=== PATIENT | male | born 1955 | race Hispanic/Latino ===

== ENCOUNTER 2021-05-01 18:18 | Inpatient (IN) | payer OTHER ==
[2021-05-01] VITALS (8 sets, daily range): BP systolic 115–219; BP diastolic 66–123
[~2021-05-01] VITALS: Ht 165.1 cm; Wt 70.4 kg
--- NOTE | 2021-05-01 18:18 | NUR ---
LATE ENTRY - 175 ARRIVAL PRESENTED TO ED VIA EMS FOR "MENTAL ISSUES" PER [facility] STAFF. EN ROUTE TO [facility], PATIENT BECAME COMBATIVE AND ATTEMPTED TO JUMP FROM VEHICLE. [facility] INITIATED INTUBATION, 7.5 ET TUBE 20G HAND INFUSING NS AND VERSED DRIP, GIVEN VERSED 5MG/ATIVAN 1MG PER [facility] STAFF. INFORMED HOUSE SUP. WILL CALL [facility] TO GET MORE INFORMATION ON PATIENT. RT AT BEDSIDE. DR. GENAO NOTIFIED AND AT BEDSIDE.
[2021-05-01] MEDS ORDERED: CARDENE-NACL 20 MG/200 ML SOLN 200 ML IV STA (18:26)
--- NOTE | 2021-05-01 18:43 | ER.PDOC ---
General Chief Complaint: Medical Clearance Stated Complaint: INTUBATED TRAVEL OUT OF US: No Time seen by MD: 17:53 Source: EMS Exam Limitations: clinical condition History of Present Illness Initial Comments This 66-year-old black male arrived to us via the ambulance. Ambulance was called byA concerned citizen that saw this gentleman talking to himself and yelling at people and try to take his clothes off. This occurred in [place]. The patient was on the [place] in [place]. The centrifuge separator tender that responded to the scene picked him up and found out that both [place] and [facility] were on diversion and so he decided to bring him up here after talking with his transmission supervisor because he knew that we have a psych unit that can handle certain things. Apparently in route, patient was threatening to jump out of the back of the ambulance so the centrifuge separator tender gave him some of benzodiazepine which slowed him so much that he ended up having to intubate him. I am unable to get any history about this gentleman other than the bypasses report the paramedics that he was agitated and try to take his clothes off and then the paramedics stating that he was agitated and trying to jump out of the back of the truck.We have no idea what medications he might be on. He also was unable to give us any history of allergies or anything else. It comes and significantly hypertensive with systolic blood pressure in the 220 range. I have ordered a Cardene drip to be started on him and just a whole plethora of labs and a chest x-ray to see what we do find. Timing/Duration: unsure Modifying Factors: improves with other (Unknown) Associated Symptoms: other (Not obtainable) Past Medical History Medical History: other Surgical History: other (UnknownSocial history is also unobtainable) Social History Alcohol Use: other Review of Systems All Other Systems: Reviewed and Negative (Review of systems not obtainable due to patient being intubated) Physical Exam General Appearance: WD/WN Neck: Supple Respiratory: chest non-tender, retractions, other (Patient is intubated he does have some inspiratory rales that were knownPatient is intubated he does have some inspiratory rales that were Found on exam. ET tube suction and got some sl ightly bloody and clear fluid out.) CVS: reg rate & rhythm, no murmur Gastrointestinal: Absent bowel sounds Extremities: Normal Inspection Neurologic/Psychiatric: Other (Neuro is completely unobtainable due to patient being sedated on on a ventilator) Skin: Normal Color, Warm/Dry Lymphatic: No Adenopathy Results/Orders Results/Orders Orders - ELOISE ROYAL MD Haloperidol Lactate (Haldol) (05/01/21 22:38) Lorazepam (Ativan) (05/01/21 22:41) Vital Signs Date Time Temp Pulse Resp B/P (MAP) Pulse Ox O2 Delivery O2 Flow Rate FiO2 05/01/21 18:25 97.8 81 12 219/123 (155) 100 Vent Mechanical Ventilator 05/01/21 18:25 97.8 81 12 100 05/01/21 18:25 97.8 81 12 05/01/21 17:57 96 16 97 35 Laboratory Tests Test 05/01/21 18:26 05/01/21 18:31 05/01/21 18:55 05/01/21 19:40 Blood Gas Sample Site LEFT BRACHIAL ARTRY Blood pH 7.340 (7.350-7.450) Blood Gas PCO2 45.1 mmHg (35.0-45.0) H Blood Gas PO2 70.0 mmHg (80.0-100.0) L Blood Gas HCO3 23.8 mmol/L (22.0-26.0) Blood Gas Base Excess -2.1 mmol/L (-2.0-2.0) L Bossman Test N/A Arterial Blood Oxygen Saturation 90.8 % (94.0-97.00) L Deoxyhemoglobin 9.1 % (0.0-5.0) H Carboxyhemoglobin 0.3 % (0.0-3.9) Methemoglobin 0.4 % (0.00-5.0) Total Hemoglobin 11.4 % (12.0-17.8) L Total Oxygen Concentration 14.5 % (13.5-17.5) Blood Gas Temperature 37.0 Oxygen Delivery Method VENT Blood Gas Vent Mode AC Blood Gas Vent Rate 18 FiO2 35 % (20-101) Blood Gas Tidal Volume 380 ML Blood Gas PEEP 5 CMH2O Total Carbon Dioxide 25.2 mmol/L (23-27) Urine Collection Type CATH Urine Color YELLOW Urine Appearance CLOUDY Urine Bilirubin NEGATIVE (NEGATIVE) Urine Ketones NEGATIVE (NEGATIVE) Urine Specific [place] 1.025 (1.005-1.030) Urine pH 5.5 (4.5-8.0) Urine Protein 2+ (NEGATIVE) H Urine Urobilinogen 0.2 E.U./dL (0.2) Urine Nitrate NEGATIVE (NEGATIVE) Urine Leukocyte Esterase TRACE (NEGATIVE) H Urine Glucose (Auto)(UA) NEGATIVE (NEGATIVE) Urine Blood 3+ (NEGATIVE) H Urine RBC TooNumerousToCount RBC/HPF (NONE Urine WBC 2-5 WBC/HPF (0-2) Urine Squamous Epithelial Cells FEW (<=FEW) Urine Bacteria FEW (NONE SEEN) H Urine Opiates Screen NEGATIVE (c/o300ng/mL) Urine Methadone Screen NEGATIVE (c/o300ng/mL) Urine Barbiturates Screen NEGATIVE (c/o200ng/mL) Urine Phencyclidine Screen NEGATIVE (c/o 25ng/mL) Ur Amphetamine/Methamphetamine NEGATIVE (al6643hw/mL) Urine MDMA Screen (Ecstasy) NEGATIVE (c/o300ng/mL) Urine Benzodiazepines Screen PRESUMPTIVE POSITIVE Urine Cocaine Metabolite Screen NEGATIVE (c/o300ng/mL) Ur Tetrahydrocannabinol (THC) Scrn NEGATIVE (c/o 50ng/mL) SARS-CoV-2 Antigen (Rapid) NEGATIVE (NEGATIVE) White Blood Count 6.1 10^3/uL (4.5-11.0) Red Blood Count 4.04 10^6/uL (4.50-5.90) L Hemoglobin 12.4 g/dL (13.9-16.3) L Hematocrit 39.8 % (37.0-53.0) Mean Corpuscular Volume 98.5 fL (78-100) Mean Corpuscular Hemoglobin 30.7 pg (26-34) Mean Corpuscular Hemoglobin Concent 31.2 g/dL (33-36.5) L Red Cell Distribution Width 12.8 % (11.5-14.5) Platelet Count 189 10^3/uL (150-400) Mean Platelet Volume 9.7 fL (7.8-11.0) Neutrophils (%) (Auto) 68.6 % (41.0-85.0) Lymphocytes (%) (Auto) 19.4 % (24.0-44.0) L Monocytes (%) (Auto) 10.2 % (5.0-12.0) Neutrophils # (Auto) 4.2 10^3/uL (1.8-7.7) Lymphocytes # (Auto) 1.18 10^3/uL1 (1.0-4.8) Monocytes # (Auto) 0.6 10^3/uL (0.3-0.8) Absolute Immature Granulocyte (auto 0.03 10^3 u/L (0-2) Absolute Eosinophils (auto) 0.1 10^3/uL (0.0-0.2) Immature Granulocytes % 0.50 % (0.00-0.50) Eosinophils % 1.0 % (0.0-5.0) Basophils % 0.3 % (0.0-0.2) H Basophils # 0.0 10^3/uL (0.0-0.1) Prothrombin Time 11.4 SEC (9.6-12.0) Prothrombin Time INR (Non-Therap) 1.1 Activated Partial Thromboplast Time 20.7 SEC (24.67-30.72) Sodium Level 134 mmol/L (132-145) Potassium Level 4.2 mmol/L (3.6-5.2) Chloride Level 100.0 mmol/L (96-109) Carbon Dioxide Level 23.1 mmol/L (20.0-32) Anion Gap 15.1 Blood Urea Nitrogen 12 mg/dL (7-18) Creatinine 1.09 mg/dL (0.59-1.40) Estimated GFR () 81.9 (>/=60) Est GFR (CKD-EPI)(Non-Afr Micronesian) 67.7 (>/=60) BUN/Creatinine Ratio 11.0 Glucose Level 156 mg/dL (70-110) H Calcium Level 8.8 mg/dL (8.4-10.5) Total Bilirubin 0.7 mg/dL (0.2-1.0) Aspartate Amino Transferase (AST) 34 U/L (0-35) Alanine Aminotransferase (ALT) 29 U/L (12-78) Alkaline Phosphatase 75 U/L (50-136) Ammonia 40 umol/L (11-35) H Total Creatine Kinase 103 U/L (39-308) Creatine Kinase MB 0.7 ng/mL (0.5-3.6) Troponin I < 0.02 ng/mL (0.00-0.05) Total Protein 7.9 g/dL (6.4-8.2) Albumin 3.7 g/dL (3.4-5.0) Globulin 4.2 Albumin/Globulin Ratio 0.880 Progress Progress Diagnostic studies: Chest x-ray shows endotracheal tube slightly too low and needs to be retracted 2 cm this repositioning was done. There is bibasilar segmental atelectasis and/or infiltrates no consolidations noted may have a small left pleural effusion. Drug screen was positive for benzodiazepines but he was given that by the paramedics to get him intubated. His urinalysis on a cath shows too numerous to count RBCs and 2-5 WBCs believe that to be just a traumatic [place] placement. His ABG shows low 8 pH is 7.34 PCO2 is slightly high at 45.1 PO2 is mildly low at 70.0 base excess is -2.1 and that was 90.8% sat which did correlate with his pulse ox of 91. Head CT comes back showing no ac [facility] intracranial process. 2030 hrs signed out to Dr. Cary ER DEPART Departure Time of Disposition: 22:47 Disposition: 09 ADMITTED INPATIENT Impression: Primary Impression: Altered mental status, unspecified Additional Impressions: Psychoses Hypoxia Hypertensive urgency Condition: Stable Comments Admitted to Dr. Fine Duration or Time Spent with Pa: 60 min Critical Care Note Total Time (mins): 60 Problem Qualifiers Primary Impression: Altered mental status, unspecified Altered mental status type: unspecified Qualified Codes: R41.82 - Altered mental status, unspecified Additional Impressions: Psychoses Psychosis type: unspecified psychosis type Qualified Codes: F29 - Unspecified psychosis not due to a substance or known physiological condition BETTY GENAO MD May 01, 2021 18:43 ELOISE ROYAL MD May 01, 2021 22:49
[2021-05-01 18:45] LABS: ABG PCO2 45.1 mmHg (35.0-45.0); BE(B) -2.1 mmol/L (-2.0-2.0); HCO3act 23.8 mmol/L (22.0-26.0)
[2021-05-01 18:57] LABS: BILIRUBIN,URINE NEGATIVE (NEGATIVE); UROBILINOGEN,URINE 0.2 E.U./dL (0.2)
--- NOTE | 2021-05-01 19:12 | NUR ---
TO CT PATIENT TO CT VIA STRETCHER
--- NOTE | 2021-05-01 19:13 | DIREP ---
PROCEDURE:CHEST 1 VIEW COMPARISON:[facility], CR, XRAY CHEST SINGLE VW, 10/03/2014, 09:28 AM. INDICATIONS:intubation FINDINGS: LUNGS/PLEURA:Endotracheal tube terminates approximately 2 cm from the krystle, slightly low lying. Bibasilar subsegmental atelectasis/infiltrates. There may be a small left pleural effusion. No pneumothorax is seen. VASCULATURE:Normal. Unremarkable pulmonary vasculature. CARDIAC:Normal. No cardiac silhouette abnormality or cardiomegaly. MEDIASTINUM:Normal. No visible mass or adenopathy. BONES:Degenerative changes in the spine and shoulders. Thoracic fusion hardware noted. No acute findings. OTHER:Overlying EKG leads noted. CONCLUSION: 1. Endotracheal tube is slightly low lying. Consider retraction 2 cm for more optimal positioning. 2. Bibasilar subsegmental atelectasis/infiltrates. No focal consolidation. There may be a small left pleural effusion. Dictated by: Sean Duran M.D. On 05/01/2021 at 07:08 PM
--- NOTE | 2021-05-01 19:36 | DIREP ---
PROCEDURE:CT HEAD OR BRAIN W/O CONTRAST COMPARISON:None. INDICATIONS:AMS TECHNIQUE:CT images were created without intravenous contrast. FINDINGS: VENTRICLES:There is moderate prominence of the ventricles and cortical sulci consistent with age related involutional changes. CEREBRUM:Moderate foci of diminished attenuation in the supratentorial white matter consistent with moderate leukoaraiosis. CEREBELLUM:Negative. BRAINSTEM:Negative. BASAL CISTERNS:Negative. HEMORRHAGE:No MASS LESION:No ACUTE INFARCT:No SKULL:Normal. SINUSES:Fluid pooling in the nasopharynx and paranasal sinuses may be related with the patient being intubated versus paranasal sinus disease. There is mucosal thickening of the right sphenoid sinus. OTHER:None CONCLUSION: 1. No acute intracranial abnormality. 2. Moderate generalized volume loss and moderate leukoaraiosis. 3. Fluid pooling in the nasopharynx and paranasal sinuses may be related with the patient being intubated and/or paranasal sinus disease. Mucosal thickening is present in the right sphenoid sinus. Dictated by: Sean Duran M.D. on 05/01/2021 at 07:32 PM
[2021-05-01 19:51] LABS: BASOPHIL % 0.3 % (0.0-0.2); EOSINOPHIL # 0.1 10^3/uL (0.0-0.2); LYMPHOCYTES # 1.18 10^3/uL1 (1.0-4.8); LYMPHOCYTES % 19.4 % (24.0-44.0); MEAN CORP HGB 30.7 pg (26-34); MONOCYTES # 0.6 10^3/uL (0.3-0.8); MONOCYTES % 10.2 % (5.0-12.0); NEUTROPHIL # 4.2 10^3/uL (1.8-7.7); NEUTROPHILS % 68.6 % (41.0-85.0); PLATELET COUNT 189 10^3/uL (150-400); RED CELL DISTRIBUTION WIDTH 12.8 % (11.5-14.5)
[2021-05-01 20:19] LABS: ALANINE AMINOTRANSFERASE(ML) 29 U/L (12-78); ALKALINE PHOSPHATASE 75 U/L (50-136); ASPARTATE AMINO TRANSFERASE 34 U/L (0-35); CALCIUM 8.8 mg/dL (8.4-10.5); CARBON DIOXIDE 23.1 mmol/L (20.0-32); GLUCOSE 156 mg/dL (70-110)
--- NOTE | 2021-05-01 20:24 | NUR ---
Pt awake and alert, able to respond appropriately to yes and no questions; EDP ordered extubation. Pt was extubated without difficulty, suctioning of the oral airway performed. Pt able to speak verbally after extubation. Placed on a NRM @ 10 lpm. HOB elevated and siderails up x 2. CHRISTIAN Martinez at the bedside. speedy Addendum: 05/01/21 at 2026 by DEVORAH JACKMAN Amended: Links added.
[2021-05-01] MEDS ORDERED: HALDOL ONE (22:38)
[2021-05-01] MEDS ORDERED: ATIVAN ONE (22:41)
[2021-05-01] MEDS ORDERED: ATIVAN IV STA (22:49)
[2021-05-01] MEDS ORDERED: HALDOL IM STA (22:49)
[2021-05-01] MEDS ORDERED: COZAAR PO STA (23:23)
--- NOTE | 2021-05-01 23:25 | PRM.CONS ---
Consultation Reason for Consult: Reason for Consultation: AMS, hypoxia, hypertensive urgency History of Present Illness Social and Family History: (1) Altered mental status, unspecified Status: Acute ICD Code: R41.82 - Altered mental status, unspecified SNOMED: 781996660 Assessment & Plan: Patient was talking to himself, yelling at people, and taking his clothes off in [place], EMS was called. [facility] and [facility] in [place] on diversion so patient brought here as [facility] has Behavioral Health Unit. Was acutely agitated in ambulance while en route to [facility] ED, was trying to get out of the ambulance through the back door. Was given a benzo then intubated to protect airway. Able to be extubated in ED but remains altered. Ammonia level 40. UDS only positive for benzos (received via EMS). CT head negative for acute process. CXR negative for acute process. Likely 2/2 psychosis of some kind.. Hx unknown at this time, medical records requested from [facility] while patient was in ED. Received haldol 5mg IM x 1 and ativan 2mg IM x 1 prior to arrival on the floor. -ativan PRN agitation -pending repeat CBC, CMP, and ammonia level in AM -transfer to Behavioral Health Unit when medically stable (2) Psychoses Status: Acute ICD Code: F29 - Unspecified psychosis not due to a substance or known physiological condition SNOMED: 89498357 Assessment & Plan: Unknown hx. Was talking to himself, yelling at other people, and taking off his clothes in [place]. Remains altered in ED. -ativan PRN agitation (3) Hypertensive urgency Status: Acute ICD Code: I16.0 - Hypertensive urgency SNOMED: 380074090 Assessment & Plan: SBP > 220 upon arrival to ED, improved to 130s after extubation and Cardene. -closely monitor, on telemetry -start losartan 25mg PO in AM -hydralazine 20mg IV q4h PRN SBP > 170 or DBP > 105 (4) Hypoxia Status: Acute ICD Code: R09.02 - Hypoxemia SNOMED: 492664659 Assessment & Plan: Likely due to intubation. Lungs clear, CXR no acute process. Unknown medical hx. -continue 2L NC as needed, wean as tolerated -continuous pulse ox (5) Unknown whether patient has any health problems SNOMED: 652851587 (6) Surgical history unknown ICD Code: Z78.9 - Other specified health status SNOMED: 013221919 (7) Unknown if ever smoked SNOMED: 176263016 (8) History of alcohol use unknown SNOMED: 389693258 (9) Unknown family medical history SNOMED: 006548385 (10) Allergy history unknown ICD Code: Z78.9 - Other specified health status SNOMED: 706938683 History of Patient Comments 66yoM w/ unknown medical hx presented to ED via EMS for AMS and agitation. He was talking to himself, yelling at other people, and taking his clothes off in [place] earlier today. EMS was called and patient was going to be taken to a local hospital; however, both main hospital systems in [place] ( and [facility]) are on diversion. EMS then brought patient to [facility] ED as there is a behavioral health unit here. Patient became acutely agitated and aggressive en route to ED, was trying to open the back door of the ambulance [place]. EMS gave him a benzo, which caused him to have decreased respiratory rate, and he was then intubated to protect airway. Upon arrival in ED patient was agitated but then calmed down. Was successfully extubated but became hypoxic requiring 2L NC. SBP > 220, improved to 130s after extubation and Cardene. ABG grossly normal (while intubated). CBC grossly normal. CMP positive for glucose 156 and ammonia 40. Troponin < 0.02. UDS positive for benzos (from EMS). UA positive for blood, likely from traumatic veneg[place] insertion. As patient is requiring supplemental O2 post-extubation he does not qualify to go to behavioral health unit at this time. Will place in observation for further work-up and to wean O2. Vitals & Lab Vital Signs Date Time Temp Pulse Resp B/P (MAP) Pulse Ox O2 Delivery O2 Flow Rate FiO2 05/02/21 04:45 98.2 81 24 144/87 (106) 96 Nasal [place] 2.00 05/01/21 17:57 35 Laboratory Tests Test 05/01/21 18:26 05/01/21 18:31 05/01/21 18:55 05/01/21 19:40 Blood Gas Sample Site LEFT BRACHIAL ARTRY Blood Gas pH 7.340 Blood Gas PCO2 45.1 mmHg Blood Gas PO2 70.0 mmHg Blood Gas HCO3 23.8 mmol/L Blood Gas Base Excess -2.1 mmol/L Bossman Test N/A Arterial Blood Oxygen Saturation 90.8 % Deoxyhemoglobin 9.1 % Carboxyhemoglobin 0.3 % Methemoglobin 0.4 % Total Hemoglobin 11.4 % Total Oxygen Concentration 14.5 % Blood Gas Temperature 37.0 Oxygen Delivery Method (LAB) VENT Blood Gas Vent Mode AC Blood Gas Vent Rate 18 FiO2 35 % Blood Gas Tidal Volume 380 ML Blood Gas PEEP 5 CMH2O Total Carbon Dioxide 25.2 mmol/L Urine Collection Type CATH Urine Color YELLOW Urine Appearance CLOUDY Urine Bilirubin NEGATIVE Urine Ketones NEGATIVE Urine Specific [place] 1.025 Urine pH 5.5 Urine Protein 2+ Urine Urobilinogen 0.2 E.U./dL Urine Nitrate NEGATIVE Urine Leukocyte Esterase TRACE Urine Glucose (Auto)(UA) NEGATIVE Urine Blood 3+ Urine RBC TooNumerousToCount RBC/HPF Urine WBC 2-5 WBC/HPF Urine Squamous Epithelial Cells FEW Urine Bacteria FEW Urine Opiates Screen NEGATIVE Urine Methadone Screen NEGATIVE Urine Barbiturates Screen NEGATIVE Urine Phencyclidine Screen NEGATIVE Ur Amphetamine/Methamphetamine NEGATIVE Urine MDMA Screen (Ecstasy) NEGATIVE Urine Benzodiazepines Screen PRESUMPTIVE POSITIVE Urine Cocaine Metabolite Screen NEGATIVE Ur Tetrahydrocannabinol (THC) Scrn NEGATIVE SARS-CoV-2 Antigen (Rapid) NEGATIVE White Blood Count 6.1 10^3/uL Red Blood Count 4.04 10^6/uL Hemoglobin 12.4 g/dL Hematocrit 39.8 % Mean Corpuscular Volume 98.5 fL Mean Corpuscular Hemoglobin 30.7 pg Mean Corpuscular Hemoglobin Concent 31.2 g/dL Red Cell Distribution Width 12.8 % Platelet Count 189 10^3/uL Mean Platelet Volume 9.7 fL Neutrophils (%) (Auto) 68.6 % Lymphocytes (%) (Auto) 19.4 % Monocytes (%) (Auto) 10.2 % Neutrophils # (Auto) 4.2 10^3/uL Lymphocytes # (Auto) 1.18 10^3/uL1 Monocytes # (Auto) 0.6 10^3/uL Absolute Immature Granulocyte (auto 0.03 10^3 u/L Absolute Eosinophils (auto) 0.1 10^3/uL Immature Granulocytes % 0.50 % Eosinophils % 1.0 % Basophils % 0.3 % Basophils # 0.0 10^3/uL Prothrombin Time 11.4 SEC Prothrombin Time INR (Non-Therap) 1.1 Activated Partial Thromboplast Time 20.7 SEC Sodium Level 134 mmol/L Potassium Level 4.2 mmol/L Chloride Level 100.0 mmol/L Carbon Dioxide Level 23.1 mmol/L Anion Gap 15.1 Blood Urea Nitrogen 12 mg/dL Creatinine 1.09 mg/dL Estimated GFR () 81.9 Est GFR (CKD-EPI)(Non-Afr Tajik) 67.7 BUN/Creatinine Ratio 11.0 Glucose Level 156 mg/dL Calcium Level 8.8 mg/dL Total Bilirubin 0.7 mg/dL Aspartate Amino Transf (AST/SGOT) 34 U/L Alanine Aminotransferase (ALT/SGPT) 29 U/L Alkaline Phosphatase 75 U/L Ammonia 40 umol/L Total Creatine Kinase 103 U/L Creatine Kinase MB 0.7 ng/mL Troponin I < 0.02 ng/mL Total Protein 7.9 g/dL Albumin 3.7 g/dL Globulin 4.2 Albumin/Globulin Ratio 0.880 Problem Qualifiers (1) Altered mental status, unspecified: Altered mental status type: unspecified Qualified Codes: R41.82 - Altered mental status, unspecified (2) Psychoses: Psychosis type: unspecified psychosis type Qualified Codes: F29 - Unspecified psychosis not due to a substance or known physiological condition SAMARIA LOPEZ MD May 01, 2021 23:25
[2021-05-01] MEDS ORDERED: TYLENOL PO PRN (23:30)
[2021-05-01] MEDS ORDERED: ZOFRAN IV PRN (23:30)
[2021-05-01] MEDS ORDERED: ATIVAN IM PRN (23:30)
[2021-05-01] MEDS ORDERED: APRESOLINE IV PRN (23:30)
--- NOTE | 2021-05-01 23:30 | NUR ---
ARRIVAL TO [facility] FLOOR VIA STRETCHER. REC REPORT FROM BERNARD HOROWITZ. ASSUMED CARE
[2021-05-02] VITALS (7 sets, daily range): BP systolic 101–175; BP diastolic 63–93
[2021-05-02 06:41] LABS: BASOPHIL % 0.2 % (0.0-0.2); EOSINOPHIL # 0.1 10^3/uL (0.0-0.2); EOSINOPHIL % 1.1 % (0.0-5.0); LYMPHOCYTES # 0.87 10^3/uL1 (1.0-4.8); LYMPHOCYTES % 13.5 % (24.0-44.0); MEAN CORP HGB 31.2 pg (26-34); MONOCYTES # 0.7 10^3/uL (0.3-0.8); MONOCYTES % 10.2 % (5.0-12.0); NEUTROPHIL # 4.8 10^3/uL (1.8-7.7); NEUTROPHILS % 74.7 % (41.0-85.0); RED CELL DISTRIBUTION WIDTH 12.7 % (11.5-14.5)
[2021-05-02 07:23] LABS: CALCIUM 8.7 mg/dL (8.4-10.5); CARBON DIOXIDE 23.3 mmol/L (20.0-32)
[2021-05-02] MEDS: COZAAR PO SCH (09:00)
[2021-05-02] MEDS: ATIVAN IV PRN ×3 (10:06→14:00)
--- NOTE | 2021-05-02 10:54 | DIREP ---
PROCEDURE:CHEST 1 VIEW COMPARISON:[facility], CR, XRAY CHEST SINGLE VW, 05/01/2021, 06:53 PM. [facility], CR, XRAY CHEST SINGLE VW, 10/03/2014, 09:28 AM. INDICATIONS:hypoxia FINDINGS: LUNGS/PLEURA:Interval extubation. Left basilar subsegmental atelectasis with mild tenting of the left hemidiaphragm. No consolidation, effusion, or pneumothorax is seen. VASCULATURE:Normal. Unremarkable pulmonary vasculature. CARDIAC:Normal. No cardiac silhouette abnormality or cardiomegaly. MEDIASTINUM:Normal. No visible mass or adenopathy. BONES:Degenerative changes in the spine and shoulders. Thoracic fusion hardware noted. No acute findings. OTHER:Negative. CONCLUSION: 1. Interval extubation. 2. No acute cardiopulmonary findings. Subsegmental atelectasis in the lung bases is improved compared to the prior examination. No consolidation or pleural effusion is seen. Dictated by: Sean Duran M.D. on 05/02/2021 at 10:50 AM
[2021-05-02] MEDS ORDERED: HALDOL IM PRN (11:30)
[2021-05-02] MEDS ORDERED: VALIUM IV ONE (16:30)
[2021-05-02] MEDS ORDERED: VALIUM PO ONE (17:30)
--- NOTE | 2021-05-02 20:19 | PCM.HP ---
HISTORY & PHYSICAL HISTORY & PHYSICAL DATE OF ADMISSION: 05/01/21 CHIEF COMPLAINT:AMS HISTORY OF PRESENT ILLNESS: Pt is a 66 year old male who was brought to the ED from [place] via EMS. EMS reported that the pt was talking to himself, taking his clothes off and yelling at other people in [place]. He was agitated upon their arrival and en route to our ED. He was given a benzodiazepine en route and also intubated to protect airway. He was then extubated in the ED but remained altered. His ammonia level was 40 in the ED. UDS was positive for benzos. CT head was negative in the ED. CXR was negative in ED. He received haldol 5mg IM x 1 and ativan 2mg IM x 1 in the ED. ALLERGIES: NKDA CURRENT MEDICATIONS: unknown PAST MEDICAL HISTORY: unknown SOCIAL HISTORY: unknown FAMILY HISTORY: unknown REVIEW OF SYSTEMS: Pt difficult to understand, he attempts to communicate but unable to answer most yes or no questions VITAL SIGNS: Vital Signs Date Time Temp Pulse Resp B/P (MAP) Pulse Ox O2 Delivery O2 Flow Rate FiO2 05/02/21 18:36 105 18 05/02/21 16:45 97.5 107/81 (90) 99 05/02/21 15:00 Room Air 21 05/02/21 10:19 2.00 PHYSICAL EXAMINATION: GENERAL: well developed, poor hygiene HEENT: PERRLA, EOMI. Oropharynx clear. Moist mucous membranes. Conjunctivae appear well perfused. CHEST: Chest wall is nontender. Cardiovascular Regular rate and rhythm without murmurs. pretibial pulses 2+ bilaterally. no edema LUNGS: Clear to auscultation bilaterally. ABDOMEN: Soft, positive bowel sounds, nontender, no organomegaly. SKIN: No rash,. various healing abrasions of differing ages on extremities NEUROLOGIC: will make eye contact but doesn't follow verbal commands well, pupils reactive to light, moving all extremities. LABORATORY DATA: Laboratory Tests Test 05/01/21 18:26 05/01/21 18:31 05/01/21 18:55 05/01/21 19:40 Blood Gas Sample Site LEFT BRACHIAL ARTRY Blood Gas pH 7.340 (7.350-7.450) Blood Gas PCO2 45.1 mmHg (35.0-45.0) Blood Gas PO2 70.0 mmHg (80.0-100.0) Blood Gas HCO3 23.8 mmol/L (22.0-26.0) Blood Gas Base Excess -2.1 mmol/L (-2.0-2.0) Bossman Test N/A Arterial Blood Oxygen Saturation 90.8 % (94.0-97.00) Deoxyhemoglobin 9.1 % (0.0-5.0) Carboxyhemoglobin 0.3 % (0.0-3.9) Methemoglobin 0.4 % (0.00-5.0) Total Hemoglobin 11.4 % (12.0-17.8) Total Oxygen Concentration 14.5 % (13.5-17.5) Blood Gas Temperature 37.0 Oxygen Delivery Method (LAB) VENT Blood Gas Vent Mode AC Blood Gas Vent Rate 18 FiO2 35 % (20-101) Blood Gas Tidal Volume 380 ML Blood Gas PEEP 5 CMH2O Total Carbon Dioxide 25.2 mmol/L (23-27) Urine Collection Type CATH Urine Color YELLOW Urine Appearance CLOUDY Urine Bilirubin NEGATIVE (NEGATIVE) Urine Ketones NEGATIVE (NEGATIVE) Urine Specific [place] 1.025 (1.005-1.030) Urine pH 5.5 (4.5-8.0) Urine Protein 2+ (NEGATIVE) Urine Urobilinogen 0.2 E.U./dL (0.2) Urine Nitrate NEGATIVE (NEGATIVE) Urine Leukocyte Esterase TRACE (NEGATIVE) Urine Glucose (Auto)(UA) NEGATIVE (NEGATIVE) Urine Blood 3+ (NEGATIVE) Urine RBC TooNumerousToCount RBC/HPF (NONE Urine WBC 2-5 WBC/HPF (0-2) Urine Squamous Epithelial Cells FEW (<=FEW) Urine Bacteria FEW (NONE SEEN) Urine Opiates Screen NEGATIVE (c/o300ng/mL) Urine Methadone Screen NEGATIVE (c/o300ng/mL) Urine Barbiturates Screen NEGATIVE (c/o200ng/mL) Urine Phencyclidine Screen NEGATIVE (c/o 25ng/mL) Ur Amphetamine/Methamphetamine NEGATIVE (yg8743yt/mL) Urine MDMA Screen (Ecstasy) NEGATIVE (c/o300ng/mL) Urine Benzodiazepines Screen PRESUMPTIVE POSITIVE Urine Cocaine Metabolite Screen NEGATIVE (c/o300ng/mL) Ur Tetrahydrocannabinol (THC) Scrn NEGATIVE (c/o 50ng/mL) SARS-CoV-2 Antigen (Rapid) NEGATIVE (NEGATIVE) White Blood Count 6.1 10^3/uL (4.5-11.0) Red Blood Count 4.04 10^6/uL (4.50-5.90) Hemoglobin 12.4 g/dL (13.9-16.3) Hematocrit 39.8 % (37.0-53.0) Mean Corpuscular Volume 98.5 fL (78-100) Mean Corpuscular Hemoglobin 30.7 pg (26-34) Mean Corpuscular Hemoglobin Concent 31.2 g/dL (33-36.5) Red Cell Distribution Width 12.8 % (11.5-14.5) Platelet Count 189 10^3/uL (150-400) Mean Platelet Volume 9.7 fL (7.8-11.0) Neutrophils (%) (Auto) 68.6 % (41.0-85.0) Lymphocytes (%) (Auto) 19.4 % (24.0-44.0) Monocytes (%) (Auto) 10.2 % (5.0-12.0) Neutrophils # (Auto) 4.2 10^3/uL (1.8-7.7) Lymphocytes # (Auto) 1.18 10^3/uL1 (1.0-4.8) Monocytes # (Auto) 0.6 10^3/uL (0.3-0.8) Absolute Immature Granulocyte (auto 0.03 10^3 u/L (0-2) Absolute Eosinophils (auto) 0.1 10^3/uL (0.0-0.2) Immature Granulocytes % 0.50 % (0.00-0.50) Eosinophils % 1.0 % (0.0-5.0) Basophils % 0.3 % (0.0-0.2) Basophils # 0.0 10^3/uL (0.0-0.1) Prothrombin Time 11.4 SEC (9.6-12.0) Prothrombin Time INR (Non-Therap) 1.1 Activated Partial Thromboplast Time 20.7 SEC (24.67-30.72) Sodium Level 134 mmol/L (132-145) Potassium Level 4.2 mmol/L (3.6-5.2) Chloride Level 100.0 mmol/L (96-109) Carbon Dioxide Level 23.1 mmol/L (20.0-32) Anion Gap 15.1 Blood Urea Nitrogen 12 mg/dL (7-18) Creatinine 1.09 mg/dL (0.59-1.40) Estimated GFR () 81.9 (>/=60) Est GFR (CKD-EPI)(Non-Afr Niuean) 67.7 (>/=60) BUN/Creatinine Ratio 11.0 Glucose Level 156 mg/dL (70-110) Calcium Level 8.8 mg/dL (8.4-10.5) Total Bilirubin 0.7 mg/dL (0.2-1.0) Aspartate Amino Transf (AST/SGOT) 34 U/L (0-35) Alanine Aminotransferase (ALT/SGPT) 29 U/L (12-78) Alkaline Phosphatase 75 U/L (50-136) Ammonia 40 umol/L (11-35) Total Creatine Kinase 103 U/L (39-308) Creatine Kinase MB 0.7 ng/mL (0.5-3.6) Troponin I < 0.02 ng/mL (0.00-0.05) Total Protein 7.9 g/dL (6.4-8.2) Albumin 3.7 g/dL (3.4-5.0) Globulin 4.2 Albumin/Globulin Ratio 0.880 Test 05/02/21 06:30 White Blood Count 6.4 10^3/uL (4.5-11.0) Red Blood Count 3.53 10^6/uL (4.50-5.90) Hemoglobin 11.0 g/dL (13.9-16.3) Hematocrit 33.9 % (37.0-53.0) Mean Corpuscular Volume 96.0 fL (78-100) Mean Corpuscular Hemoglobin 31.2 pg (26-34) Mean Corpuscular Hemoglobin Concent 32.4 g/dL (33-36.5) Red Cell Distribution Width 12.7 % (11.5-14.5) Platelet Count 141 10^3/uL (150-400) Mean Platelet Volume 10.0 fL (7.8-11.0) Neutrophils (%) (Auto) 74.7 % (41.0-85.0) Lymphocytes (%) (Auto) 13.5 % (24.0-44.0) Monocytes (%) (Auto) 10.2 % (5.0-12.0) Neutrophils # (Auto) 4.8 10^3/uL (1.8-7.7) Lymphocytes # (Auto) 0.87 10^3/uL1 (1.0-4.8) Monocytes # (Auto) 0.7 10^3/uL (0.3-0.8) Absolute Immature Granulocyte (auto 0.02 10^3 u/L (0-2) Absolute Eosinophils (auto) 0.1 10^3/uL (0.0-0.2) Immature Granulocytes % 0.30 % (0.00-0.50) Eosinophils % 1.1 % (0.0-5.0) Basophils % 0.2 % (0.0-0.2) Basophils # 0.0 10^3/uL (0.0-0.1) Sodium Level 134 mmol/L (132-145) Potassium Level 4.1 mmol/L (3.6-5.2) Chloride Level 103.0 mmol/L (96-109) Carbon Dioxide Level 23.3 mmol/L (20.0-32) Anion Gap 11.8 Blood Urea Nitrogen 10 mg/dL (7-18) Creatinine 0.90 mg/dL (0.59-1.40) Estimated GFR () 102.2 (>/=60) Est GFR (CKD-EPI)(Non-Afr Niuean) 84.4 (>/=60) BUN/Creatinine Ratio 11.0 Glucose Level 94 mg/dL (70-110) Calcium Level 8.7 mg/dL (8.4-10.5) Total Bilirubin 0.9 mg/dL (0.2-1.0) Aspartate Amino Transf (AST/SGOT) 30 U/L (0-35) Alanine Aminotransferase (ALT/SGPT) 24 U/L (12-78) Alkaline Phosphatase 61 U/L (50-136) Ammonia 13 umol/L (11-35) Total Protein 6.8 g/dL (6.4-8.2) Albumin 3.0 g/dL (3.4-5.0) Globulin 3.8 Albumin/Globulin Ratio 0.789 IMAGING: CT head negative for acute findings CXR negative for acute findings SUMMARY: Pt admitted for AMS from [place] with little known PMHx ASSESSMENT/PLAN: AMS - currently prn benzos, repeat ammonia in the morning, may consider lactulose along with full cirrhosis w/u. Consult to psych tomorrow AM. He appears to be in no acute distress at this time but psychiatry is most beneficial to this pt. KYLIE COMBS MD May 02, 2021 20:19
[2021-05-03 00:28] VITALS: BP_SYST 107; BP_SYST 123; BP_DIAS 80; BP_DIAS 81
[2021-05-03] MEDS: VALIUM PO PRN ×4 (02:30→21:35)
[2021-05-03 04:19] VITALS: BP 127/55
[2021-05-03 05:26] VITALS: BP 129/66
[2021-05-03 05:41] LABS: BASOPHIL % 0.4 % (0.0-0.2); EOSINOPHIL # 0.1 10^3/uL (0.0-0.2); LYMPHOCYTES % 23.9 % (24.0-44.0); MEAN CORP HGB 31.2 pg (26-34); MONOCYTES # 0.6 10^3/uL (0.3-0.8); MONOCYTES % 12.1 % (5.0-12.0); NEUTROPHIL # 2.8 10^3/uL (1.8-7.7); NEUTROPHILS % 61.6 % (41.0-85.0); PLATELET COUNT 196 10^3/uL (150-400); RED CELL DISTRIBUTION WIDTH 12.6 % (11.5-14.5)
[2021-05-03 05:49] LABS: CALCIUM 8.8 mg/dL (8.4-10.5); CARBON DIOXIDE 25.8 mmol/L (20.0-32)
[2021-05-03] MEDS: ATIVAN IV PRN (07:30)
[2021-05-03 08:23] VITALS: BP 125/68
--- NOTE | 2021-05-03 08:35 | NUR ---
VALIUM RECEIVED ORDER TO GIVE 5MG OF VALIUM EARLY DUE TO PATIENTS INCREASED AGITATION
[2021-05-03] MEDS: COZAAR PO SCH (09:00)
--- NOTE | 2021-05-03 11:16 | PRM.PN ---
Suidical thoughts: denies Homicidal thoughts: denies Family support: son/daughter Psychotic sympstoms: pt unable to answer Manic Symptoms: pt unable to answer Appearance: Appears older Mood & Affect: Constricted Orientation: Disoriented to place, Disoriented to time, Disoriented to situation Attention/Concentration: Poor attention, Poor concentration Speech: Impaired Judgement/Insight: Poor judgement, Poor insight Thought Process: Loose Language: Nauruan Fund of Knowledge: Other (limited) Associations: NADIA Memory (recent and remote): Recent memory repaired, Remote memory repaired Constitutional: None Neurological: None Psychiatric: None [place] I: AMS/Delirium Assessment/Plan Assessment/Plan Assessment/Plan 66 yo M, brought in to [facility] after being found talking to himself, yelling at people, and trying to take his clothes off in [place]. He was threatening to jump out of ambulance, was given benzo to calm him, but ended up needing intubation. Patient was admitted to medical unit for AMS. Patient responds to name being called. Disoriented to place, situation, and date (states it is "1990"). He answers a few questions intelligibly, but often seems to mumble unintelligibly, and was falling asleep during interview. He is not able to provide any significant history regarding any prior psych/medical issues, any medications he may take; no collateral available from family with regard to his baseline. Assessment: 66 yo M, unknown hx, admitted to [facility] for AMS. Patient's presentation does not seem consistent with a mood/thought disorder; but he does appear delirious -- disoriented, inattentive, impaired memory, impaired language, fluctuating level of consciousness. Recs: 1) Continued workup for any underlying medical issues that may be causing his AMS 2) Recommend Low dose, high potency antipsychotic for psychosisagitation -- e.g. Zyprexa 5mg PO Q6hrs PRN agitation/psychosis 3) Avoid anticholingerics/benzos for agitation as they can worsen delirium 4) Provide frequent reorientation, visual cues (calendar, clocks), any assistive devices (eyeglasses, etc), reinforce sleep/wake cycle Patient History: Unknown family medical history MATHEUS RODAS MD May 03, 2021 11:16
--- NOTE | 2021-05-03 11:47 | PCM.EKG ---
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
[2021-05-03] MEDS ORDERED: HEPARIN IV SCH (13:30)
[2021-05-03] MEDS: HEPARIN-D5W 20,000 UNIT/500 ML 500 ML IV SCH (14:49)
[2021-05-03] MEDS ORDERED: MYLANTA PO PRN (15:00)
--- NOTE | 2021-05-03 15:23 | PRM.PN ---
Subjective Subjective Date: May 03, 2021 Time: 15:16 Subjective Pt seen and examined today. He appeared to be less confused and could answer some, but not all, questions today. He was hungry and had two breakfasts. He complained of chest pain and then told my staff that he had a history of 2 prev ious heart attacks. A trop and EKG were ordered. the trop was elevated. Cardiology was consulted. Pt started on heparin drip. Will order one on one. Patient History: Unknown family medical history VTE VTE Risk Total Score: 2 VTE Risk Score VTE Risk: Score 0-1 = Low Risk (Aggressive mobilization; early ambulation; no VTE prophylaxis required) Score 2: Moderate Risk (Intermittent/Pneumatic Compression Device OR Lovenox/Heparin/Coumadin) Score 3-4: High Risk (Intermittent/Pneumatic Compression Device AND Lovenox/Heparin/Coumadin) Score > or =5: Highest Risk (Intermittent/Pneumatic Compression Device AND Lovenox/Heparin/Coumadin) Review of Systems Respiratory: No: Shortness of breath Cardiovascular: Chest Pain Gastrointestinal: No: Nausea, Vomiting, Diarrhea Skin: No: Rash Allergies: Coded Allergies: No Known Allergies (Unverified , 05/01/21) Objective Vitals and I/O Vital Sign - Last 24 Hours 05/03/21 05/03/21 05/03/21 05/03/21 08:23 09:00 10:10 10:25 Temp 98.0 Pulse 83 96 Resp 19 22 B/P (MAP) 125/68 (87) 125/68 Pulse Ox 99 98 O2 Delivery Room Air Room Air Intake and Output 05/03/21 07:00 Intake Total 690 ml Output Total 1080 ml Balance -390 ml General: Alert, Other (somewhat cooperative but only at times, was eating his breakfast this morning) HEENT: PERRLA, EOMI Neck: Supple Lungs: Clear to auscultation, Normal air movement Heart: Regular rate, No murmurs Abdomen: Normal bowel sounds, Soft, No tenderness Extremities: No edema Skin: No rashes Psych/Mental Status: Other (mildly agitated, sometimes cooperative, doesn't follow all commands or answer all questions fully) All Results(Lab/Rad) Laboratory Tests Test 05/03/21 04:47 05/03/21 11:01 05/03/21 13:50 White Blood Count 4.6 10^3/uL Red Blood Count 3.88 10^6/uL Hemoglobin 12.1 g/dL Hematocrit 38.6 % Mean Corpuscular Volume 99.5 fL Mean Corpuscular Hemoglobin 31.2 pg Mean Corpuscular Hemoglobin Concent 31.3 g/dL Red Cell Distribution Width 12.6 % Platelet Count 196 10^3/uL Mean Platelet Volume 10.5 fL Neutrophils (%) (Auto) 61.6 % Lymphocytes (%) (Auto) 23.9 % Monocytes (%) (Auto) 12.1 % Neutrophils # (Auto) 2.8 10^3/uL Lymphocytes # (Auto) 1.10 10^3/uL1 Monocytes # (Auto) 0.6 10^3/uL Absolute Immature Granulocyte (auto 0.01 10^3 u/L Absolute Eosinophils (auto) 0.1 10^3/uL Immature Granulocytes % 0.20 % Eosinophils % 2.0 % Basophils % 0.4 % Basophils # 0.0 10^3/uL Sodium Level 138 mmol/L Potassium Level 4.3 mmol/L Chloride Level 104.0 mmol/L Carbon Dioxide Level 25.8 mmol/L Anion Gap 12.5 Blood Urea Nitrogen 18 mg/dL Creatinine 1.49 mg/dL Estimated GFR () 57.1 Est GFR (CKD-EPI)(Non-Afr Chadian) 47.2 BUN/Creatinine Ratio 12.0 Glucose Level 115 mg/dL Calcium Level 8.8 mg/dL Total Bilirubin 0.8 mg/dL Aspartate Amino Transf (AST/SGOT) 31 U/L Alanine Aminotransferase (ALT/SGPT) 25 U/L Alkaline Phosphatase 65 U/L Ammonia 21 umol/L Total Protein 7.3 g/dL Albumin 3.3 g/dL Globulin 4.0 Albumin/Globulin Ratio 0.825 Creatine Kinase MB 2.2 ng/mL Troponin I High Sensitivity 119 ng/L Activated Partial Thromboplast Time 21.9 SEC Current Medications Medications (Trade) Dose Ordered Sig/Kevin Route PRN Reason Start Time Stop Time Status Last Admin Dose Admin Haloperidol Lactate (Haldol) 5 mg STK-MED ONCE .ROUTE 05/01/21 22:38 05/01/21 22:39 DC Lorazepam (Ativan) 2 mg STK-MED ONCE .ROUTE 05/01/21 22:41 05/01/21 22:41 DC Lorazepam (Ativan) 1 mg STAT STAT IV 05/01/21 22:49 05/01/21 22:52 DC 05/01/21 22:50 Haloperidol Lactate (Haldol) 5 mg STAT STAT IM 05/01/21 22:49 05/01/21 22:52 DC 05/01/21 22:49 Acetaminophen (Tylenol) 650 mg Q6H PRN PO PAIN 1 - 3 05/01/21 23:30 05/31/21 23:29 Hydralazine HCl (Apresoline) 20 mg Q4HR PRN IV HYPERTENSION 05/01/21 23:30 05/31/21 23:29 05/02/21 10:06 Ondansetron HCl (Zofran) 4 mg Q4H PRN IV NAUSEA / VOMITING 05/01/21 23:30 05/31/21 23:29 05/02/21 11:16 Lorazepam (Ativan) 1 mg Q2HR PRN IM AGITATION 05/01/21 23:30 05/02/21 04:19 DC 05/02/21 00:35 Losartan Potassium (Cozaar) 25 mg DAILY PO 05/02/21 09:00 06/01/21 08:59 Losartan Potassium (Cozaar) 25 mg STAT STAT PO 05/01/21 23:23 05/01/21 23:59 DC Lorazepam (Ativan) 1 mg Q2HR PRN IV AGITATION 05/02/21 04:30 06/01/21 04:29 05/03/21 07:30 Haloperidol Lactate (Haldol) 5 mg STAT PRN IM ANXIETY 05/02/21 11:30 06/01/21 11:29 05/02/21 11:28 Diazepam (Valium) 10 mg OT ONCE IV 05/02/21 16:30 05/02/21 20:29 DC Diazepam (Valium) 10 mg OT ONCE PO 05/02/21 17:30 05/02/21 20:29 DC 05/02/21 17:17 Diazepam (Valium) 5 mg Q4 PRN PO AGITATION 05/02/21 19:00 05/03/21 10:56 DC 05/03/21 08:53 Diazepam (Valium) 10 mg Q4 PRN PO AGITATION 05/03/21 11:00 06/02/21 10:59 Heparin Sodium/ Dextrose 500 ml @ 0 mls/hr TITRATE IV 05/03/21 13:30 06/02/21 13:29 05/03/21 14:49 Heparin Sodium (Porcine) (Heparin) 5,000 unit OT IV 05/03/21 13:30 06/02/21 13:29 05/03/21 14:45 Aspirin (Aspirin Ec) DAILY PO 05/04/21 09:00 06/03/21 08:59 Acetaminophen (Tylenol) 1,000 mg Q4H PRN PO PAIN 4 - 6 05/03/21 15:00 06/02/21 14:59 Morphine Sulfate (Morphine Sulfate) 2 mg Q4H PRN IV PAIN 7 - 10 05/03/21 15:30 06/02/21 15:29 Olanzapine (Zyprexa Zydis) 5 mg HS SL 05/03/21 21:00 06/02/21 20:59 Course Sepsis Screening Results: Posi: NEGATIVE Sepsis Qualifier/Stage: NO DEFINITE RISK Duration or Total Time Spent w: 60 min Vitals & review Data Vital Sign - Last 24 Hours 05/03/21 05/03/21 05/03/21 05/03/21 08:23 09:00 10:10 10:25 Temp 98.0 Pulse 83 96 Resp 19 22 B/P (MAP) 125/68 (87) 125/68 Pulse Ox 99 98 O2 Delivery Room Air Room Air Intake and Output 05/03/21 07:00 Intake Total 690 ml Output Total 1080 ml Balance -390 ml Laboratory Tests Test 05/01/21 18:26 05/01/21 18:31 05/01/21 18:55 05/01/21 19:40 Blood Gas Sample Site LEFT BRACHIAL ARTRY Blood Gas pH 7.340 Blood Gas PCO2 45.1 mmHg Blood Gas PO2 70.0 mmHg Blood Gas HCO3 23.8 mmol/L Blood Gas Base Excess -2.1 mmol/L Bossman Test N/A Arterial Blood Oxygen Saturation 90.8 % Deoxyhemoglobin 9.1 % Carboxyhemoglobin 0.3 % Methemoglobin 0.4 % Total Hemoglobin 11.4 % Total Oxygen Concentration 14.5 % Blood Gas Temperature 37.0 Oxygen Delivery Method (LAB) VENT Blood Gas Vent Mode AC Blood Gas Vent Rate 18 FiO2 35 % Blood Gas Tidal Volume 380 ML Blood Gas PEEP 5 CMH2O Total Carbon Dioxide 25.2 mmol/L Urine Collection Type CATH Urine Color YELLOW Urine Appearance CLOUDY Urine Bilirubin NEGATIVE Urine Ketones NEGATIVE Urine Specific [place] 1.025 Urine pH 5.5 Urine Protein 2+ Urine Urobilinogen 0.2 E.U./dL Urine Nitrate NEGATIVE Urine Leukocyte Esterase TRACE Urine Glucose (Auto)(UA) NEGATIVE Urine Blood 3+ Urine RBC TooNumerousToCount RBC/HPF Urine WBC 2-5 WBC/HPF Urine Squamous Epithelial Cells FEW Urine Bacteria FEW Urine Opiates Screen NEGATIVE Urine Methadone Screen NEGATIVE Urine Barbiturates Screen NEGATIVE Urine Phencyclidine Screen NEGATIVE Ur Amphetamine/Methamphetamine NEGATIVE Urine MDMA Screen (Ecstasy) NEGATIVE Urine Benzodiazepines Screen PRESUMPTIVE POSITIVE Urine Cocaine Metabolite Screen NEGATIVE Ur Tetrahydrocannabinol (THC) Scrn NEGATIVE SARS-CoV-2 Antigen (Rapid) NEGATIVE White Blood Count 6.1 10^3/uL Red Blood Count 4.04 10^6/uL Hemoglobin 12.4 g/dL Hematocrit 39.8 % Mean Corpuscular Volume 98.5 fL Mean Corpuscular Hemoglobin 30.7 pg Mean Corpuscular Hemoglobin Concent 31.2 g/dL Red Cell Distribution Width 12.8 % Platelet Count 189 10^3/uL Mean Platelet Volume 9.7 fL Neutrophils (%) (Auto) 68.6 % Lymphocytes (%) (Auto) 19.4 % Monocytes (%) (Auto) 10.2 % Neutrophils # (Auto) 4.2 10^3/uL Lymphocytes # (Auto) 1.18 10^3/uL1 Monocytes # (Auto) 0.6 10^3/uL Absolute Immature Granulocyte (auto 0.03 10^3 u/L Absolute Eosinophils (auto) 0.1 10^3/uL Immature Granulocytes % 0.50 % Eosinophils % 1.0 % Basophils % 0.3 % Basophils # 0.0 10^3/uL Prothrombin Time 11.4 SEC Prothrombin Time INR (Non-Therap) 1.1 Activated Partial Thromboplast Time 20.7 SEC Sodium Level 134 mmol/L Potassium Level 4.2 mmol/L Chloride Level 100.0 mmol/L Carbon Dioxide Level 23.1 mmol/L Anion Gap 15.1 Blood Urea Nitrogen 12 mg/dL Creatinine 1.09 mg/dL Estimated GFR () 81.9 Est GFR (CKD-EPI)(Non-Afr Chadian) 67.7 BUN/Creatinine Ratio 11.0 Glucose Level 156 mg/dL Calcium Level 8.8 mg/dL Total Bilirubin 0.7 mg/dL Aspartate Amino Transf (AST/SGOT) 34 U/L Alanine Aminotransferase (ALT/SGPT) 29 U/L Alkaline Phosphatase 75 U/L Ammonia 40 umol/L Total Creatine Kinase 103 U/L Creatine Kinase MB 0.7 ng/mL Troponin I < 0.02 ng/mL Total Protein 7.9 g/dL Albumin 3.7 g/dL Globulin 4.2 Albumin/Globulin Ratio 0.880 Test 05/02/21 06:30 05/03/21 04:47 05/03/21 11:01 05/03/21 13:50 White Blood Count 6.4 10^3/uL 4.6 10^3/uL Red Blood Count 3.53 10^6/uL 3.88 10^6/uL Hemoglobin 11.0 g/dL 12.1 g/dL Hematocrit 33.9 % 38.6 % Mean Corpuscular Volume 96.0 fL 99.5 fL Mean Corpuscular Hemoglobin 31.2 pg 31.2 pg Mean Corpuscular Hemoglobin Concent 32.4 g/dL 31.3 g/dL Red Cell Distribution Width 12.7 % 12.6 % Platelet Count 141 10^3/uL 196 10^3/uL Mean Platelet Volume 10.0 fL 10.5 fL Neutrophils (%) (Auto) 74.7 % 61.6 % Lymphocytes (%) (Auto) 13.5 % 23.9 % Monocytes (%) (Auto) 10.2 % 12.1 % Neutrophils # (Auto) 4.8 10^3/uL 2.8 10^3/uL Lymphocytes # (Auto) 0.87 10^3/uL1 1.10 10^3/uL1 Monocytes # (Auto) 0.7 10^3/uL 0.6 10^3/uL Absolute Immature Granulocyte (auto 0.02 10^3 u/L 0.01 10^3 u/L Absolute Eosinophils (auto) 0.1 10^3/uL 0.1 10^3/uL Immature Granulocytes % 0.30 % 0.20 % Eosinophils % 1.1 % 2.0 % Basophils % 0.2 % 0.4 % Basophils # 0.0 10^3/uL 0.0 10^3/uL Sodium Level 134 mmol/L 138 mmol/L Potassium Level 4.1 mmol/L 4.3 mmol/L Chloride Level 103.0 mmol/L 104.0 mmol/L Carbon Dioxide Level 23.3 mmol/L 25.8 mmol/L Anion Gap 11.8 12.5 Blood Urea Nitrogen 10 mg/dL 18 mg/dL Creatinine 0.90 mg/dL 1.49 mg/dL Estimated GFR () 102.2 57.1 Est GFR (CKD-EPI)(Non-Afr Chadian) 84.4 47.2 BUN/Creatinine Ratio 11.0 12.0 Glucose Level 94 mg/dL 115 mg/dL Calcium Level 8.7 mg/dL 8.8 mg/dL Total Bilirubin 0.9 mg/dL 0.8 mg/dL Aspartate Amino Transf (AST/SGOT) 30 U/L 31 U/L Alanine Aminotransferase (ALT/SGPT) 24 U/L 25 U/L Alkaline Phosphatase 61 U/L 65 U/L Ammonia 13 umol/L 21 umol/L Total Protein 6.8 g/dL 7.3 g/dL Albumin 3.0 g/dL 3.3 g/dL Globulin 3.8 4.0 Albumin/Globulin Ratio 0.789 0.825 Creatine Kinase MB 2.2 ng/mL Troponin I High Sensitivity 119 ng/L Activated Partial Thromboplast Time 21.9 SEC Current Medications Medications (Trade) Dose Ordered Sig/Kevin PRN Reason Start Time Stop Time Status Last Admin Acetaminophen (Tylenol) 650 mg Q6H PRN PAIN 1 - 3 05/01/21 23:30 05/31/21 23:29 Acetaminophen (Tylenol) 1,000 mg Q4H PRN PAIN 4 - 6 05/03/21 15:00 06/02/21 14:59 Aspirin (Aspirin Ec) DAILY 05/04/21 09:00 06/03/21 08:59 Diazepam (Valium) 10 mg Q4 PRN AGITATION 05/03/21 11:00 06/02/21 10:59 Haloperidol Lactate (Haldol) 5 mg STAT PRN ANXIETY 05/02/21 11:30 06/01/21 11:29 05/02/21 11:28 Heparin Sodium (Porcine) (Heparin) 5,000 unit OT 05/03/21 13:30 06/02/21 13:29 05/03/21 14:45 Heparin Sodium/ Dextrose 500 ml @ 0 mls/hr TITRATE 05/03/21 13:30 06/02/21 13:29 05/03/21 14:49 Hydralazine HCl (Apresoline) 20 mg Q4HR PRN HYPERTENSION 05/01/21 23:30 05/31/21 23:29 05/02/21 10:06 Lorazepam (Ativan) 1 mg Q2HR PRN AGITATION 05/02/21 04:30 06/01/21 04:29 05/03/21 07:30 Losartan Potassium (Cozaar) 25 mg DAILY 05/02/21 09:00 06/01/21 08:59 Morphine Sulfate (Morphine Sulfate) 2 mg Q4H PRN PAIN 7 - 10 05/03/21 15:30 06/02/21 15:29 Olanzapine (Zyprexa Zydis) 5 mg HS 05/03/21 21:00 06/02/21 20:59 Ondansetron HCl (Zofran) 4 mg Q4H PRN NAUSEA / VOMITING 05/01/21 23:30 05/31/21 23:29 05/02/21 11:16 LEVEL 2-SIRS (LIST ALL THAT AP: None/Not assessed Cardiovascular Evidence: Not Assessed or None Hematologic Evidence: None/Not assessed Hepatic Evidence: None/Not assessed Metabolic Evidence: None/Not assessed Neurological Evidence: Altered Mental Status Respiratory Evidence: None/Not assessed Renal Evidence: None/Not assessed O2 Sat by Pulse Oximetry: 98 Oxygen Flow Rate: 2.00 Assessment/Plan Assessment/Plan Assessment/Plan AMS - drug screen was negative other than benzos (given), ammonia level not significantly elevated, no significant electrolyte imbalance, unknown baseline at this time. Will start zyprexa 5mg qHS and monitor. Chest pain - elevated trop, no ST elevation on EKG. Cardiology consulted and started pt on heparin drip. Adding POLINA. Appreciate their assistance. Will not transfer the pt but will place on one-on-one for now. D/c planning - difficult situation as pt not from [place], we haven't been able to find a contact to understand the baseline or further history of the pt. He appears to not be any harm to himself or others. No obvious causes for AMS. ?EtOH abuse? May consider librium? Will keep benzo's prn for severe agitation or possible seizures if this may be EtOH withdrawal. It is difficult to know. KYLIE COMBS MD May 03, 2021 15:23
--- NOTE | 2021-05-03 15:27 | NUR ---
SS SERVICES: SS CALLED APS SINCE PT IS NOT ORIENTED A POOR HISTORIAN WITH NO SAFE DISCHARGE PLAN. SW VISITED WITH PRINCESS ID#[id number], CONFIRMATION [id number]. SS TO CONTINUE TO FOLLOW.
[2021-05-03] MEDS ORDERED: MORPHINE SULFATE IV PRN (15:30)
[2021-05-03 20:00] VITALS: BP 153/83
[2021-05-03] MEDS: ZYPREXA ZYDIS SL SCH (21:35)
--- NOTE | 2021-05-03 21:41 | NUR ---
PT APTT WAS 44.2 HEPARIN ADJUSTED TO 27.5MLS/HR/1100 UNITS PER HEPARIN PROTOCOL. WITNESSED AT BEDSIDE BY MY SELF AND EJ GONZALES.
[2021-05-04] MEDS: VALIUM PO PRN ×5 (01:50→20:27)
--- NOTE | 2021-05-04 01:56 | CNH ---
DATE OF CONSULTATION: 05/03/2021 DICTATOR NAME: CAYDEN VILLALTA DO REASON FOR CONSULTATION: Elevated troponins. HISTORY OF PRESENT ILLNESS: This is a 66-year-old male who presented to the Emergency Room with altered mental status. Apparently, he was found on the streets, yelling and screaming at everyone as well as taking off his clothes and was extremely belligerent. The paramedics brought him to the Emergency Room where his ammonia level was noted to be 40. It is presumed that he had consumed excessive amount of alcohol. He was also noted to have significantly elevated blood pressure with a systolic blood pressure greater than 220. CT of the head was negative for any acute findings. He was initially intubated, but is now currently extubated. He is completely disoriented to time, place, and person. Initial troponin-I was noted to be less than 0.02 upon presentation. Repeat high-sensitive troponin was noted to be 119. A consultation was then placed to Cardiology Service for evaluation. His creatinine level appears to be trending up with a creatinine level of 1.5 at this time. PAST MEDICAL HISTORY: Unknown due to patient's current clinical state. PAST SURGICAL HISTORY: Unknown due to patient's current clinical state. ALLERGIES: No known drug allergies. MEDICATIONS: Unknown due to patient's current clinical state. FAMILY HISTORY: Unknown due to patient's current clinical state. SOCIAL HISTORY: Presumed alcohol abuse. REVIEW OF SYSTEMS: Unable to obtain due to patient's current clinical state. PHYSICAL EXAMINATION: VITAL SIGNS: Blood pressure is 125/68, respiratory rate is 19, pulse is 96, pulse oximetry is 98% on room air, temperature is 98. GENERAL: He is disoriented to person, place, and time, confused. HEENT: Normocephalic, atraumatic. Extraocular muscles intact. Pupils equally round, reactive to light and accommodation. CARDIAC: S1, S2. No gallops, murmurs, rubs, or clicks. LUNGS: Clear to auscultation bilaterally. No wheezing, rhonchi, or rales. ABDOMEN: Soft, nontender, nondistended. Positive bowel sounds in all 4 quadrants. EXTREMITIES: No cyanosis, no clubbing, no edema, +2 pedal pulses palpable bilaterally. NEUROLOGIC: Unable to obtain due to patient's clinical state. IMPRESSION: 1. Altered mental status. 2. Presumed metabolic encephalopathy. 3. Presumed alcohol abuse. 4. Elevated high-sensitive troponins. RECOMMENDATIONS: This is a 66-year-old male who presented to the Emergency Room with altered mental status after having been found by paramedics to be belligerent and yelling at everyone on the streets, and threatening to take off his clothes in public. Upon presentation to the ED, his ammonia level was noted to be 40 with significantly elevated blood pressure, with systolic blood pressure greater than 220. He was given Cardene and his blood pressure has subsequently normalized. He was initially intubated and was then extubated. He is currently confused and disoriented to person, place, and time. It is unclear what his cardiac history is. Initial troponin-I was noted to be within normal limits; however, a repeat high-sensitive troponin was noted to be elevated. 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 A consultation was placed to Cardiology Service for evaluation for elevated troponins. The patient cannot relate if he is having chest pain at this time. CT of the head is negative for any acute findings. I am going to start him on a heparin drip. I do not think he is capable of taking oral pills at this time due to his current clinical state. I am going to manage him conservatively from a cardiac standpoint. Ultimately, he does need to be managed for his altered mental status by the hospitalist team. I would recommend to check alcohol levels as well as to put him on DT protocol. I will defer to the hospitalist team for management of his altered mental status/metabolic encephalopathy with presumed alcohol abuse. A 2-D echo will be obtained to evaluate his left ventricular ejection fraction and structural integrity of his heart. No invasive cardiac workup is planned at this time. Conservative management from a cardiac standpoint is recommended. Laurel DOSS D.O. DR: TERRI MCCLELLAND: [id number] RECEIPT: [id number] JAREDD
--- NOTE | 2021-05-04 02:17 | NUR ---
PT APTT WAS 50.7 HEPARIN ADJUSTED TO 30MLS/HR/1200 UNITS PER HEPARIN PROTOCOL. WITNESSED AT BEDSIDE BY MY SELF AND EJ GONZALES.
[2021-05-04 06:11] VITALS: BP 122/58
[2021-05-04] MEDS: ATIVAN IV PRN ×4 (06:22→19:00)
[2021-05-04 06:24] LABS: BASOPHIL % 0.6 % (0.0-0.2); EOSINOPHIL # 0.1 10^3/uL (0.0-0.2); LYMPHOCYTES # 1.07 10^3/uL1 (1.0-4.8); LYMPHOCYTES % 30.7 % (24.0-44.0); MEAN CORP HGB 31.4 pg (26-34); MONOCYTES # 0.5 10^3/uL (0.3-0.8); MONOCYTES % 13.5 % (5.0-12.0); NEUTROPHIL # 1.8 10^3/uL (1.8-7.7); NEUTROPHILS % 51.2 % (41.0-85.0); PLATELET COUNT 120 10^3/uL (150-400); RED CELL DISTRIBUTION WIDTH 12.3 % (11.5-14.5)
[2021-05-04 07:14] LABS: CALCIUM 8.7 mg/dL (8.4-10.5); CARBON DIOXIDE 25.2 mmol/L (20.0-32)
[2021-05-04] MEDS: HEPARIN-D5W 20,000 UNIT/500 ML 500 ML IV SCH ×2 (07:21→23:16)
[2021-05-04] MEDS ORDERED: ASPIRIN ONE (07:29)
[2021-05-04] MEDS: COZAAR PO SCH (07:30)
[2021-05-04] MEDS ORDERED: ASPIRIN EC PO SCH (09:00)
--- NOTE | 2021-05-04 12:27 | PRM.PN ---
Subjective Subjective Date: May 04, 2021 Time: 09:00 Subjective Patient remains confused, unable to answer questions appropriately. Patient has a sitter and as per sitter patient has been eating and asking for food. Does not appear to be in acute distress. Patient History: Unknown family medical history Review of Systems Constitutional: Other Respiratory: No: Shortness of breath Gastrointestinal: No: Nausea, Vomiting, Diarrhea Skin: No: Rash Allergies: Coded Allergies: No Known Allergies (Unverified , 05/01/21) Objective Vitals and I/O Vital Sign - Last 24 Hours 05/03/21 05/03/21 05/03/21 05/04/21 19:58 20:00 22:12 06:11 Temp 98.0 98.0 Pulse 80 80 69 Resp 20 20 18 B/P (MAP) 153/83 (106) 122/58 (79) Pulse Ox 97 97 99 O2 Delivery Room Air FiO2 21 05/04/21 05/04/21 07:30 11:17 Pulse 68 Resp 18 B/P (MAP) 122/58 Pulse Ox 94 O2 Delivery Room Air O2 Flow Rate 0.00 FiO2 21 Intake and Output 05/04/21 07:00 Intake Total 118 ml Output Total 1000 ml Balance -882 ml General: Alert, Other (Still confused but is awake enough to ask for food and eat.) HEENT: PERRLA, EOMI Neck: Supple Lungs: Clear to auscultation, Normal air movement Heart: Regular rate, No murmurs Abdomen: Normal bowel sounds, Soft, No tenderness Extremities: No edema Skin: No rashes Psych/Mental Status: Other (mildly agitated, sometimes cooperative, doesn't follow all commands or answer all questions fully) All Results(Lab/Rad) Laboratory Tests Test 05/03/21 04:47 05/03/21 11:01 05/03/21 13:50 White Blood Count 4.6 10^3/uL Red Blood Count 3.88 10^6/uL Hemoglobin 12.1 g/dL Hematocrit 38.6 % Mean Corpuscular Volume 99.5 fL Mean Corpuscular Hemoglobin 31.2 pg Mean Corpuscular Hemoglobin Concent 31.3 g/dL Red Cell Distribution Width 12.6 % Platelet Count 196 10^3/uL Mean Platelet Volume 10.5 fL Neutrophils (%) (Auto) 61.6 % Lymphocytes (%) (Auto) 23.9 % Monocytes (%) (Auto) 12.1 % Neutrophils # (Auto) 2.8 10^3/uL Lymphocytes # (Auto) 1.10 10^3/uL1 Monocytes # (Auto) 0.6 10^3/uL Absolute Immature Granulocyte (auto 0.01 10^3 u/L Absolute Eosinophils (auto) 0.1 10^3/uL Immature Granulocytes % 0.20 % Eosinophils % 2.0 % Basophils % 0.4 % Basophils # 0.0 10^3/uL Sodium Level 138 mmol/L Potassium Level 4.3 mmol/L Chloride Level 104.0 mmol/L Carbon Dioxide Level 25.8 mmol/L Anion Gap 12.5 Blood Urea Nitrogen 18 mg/dL Creatinine 1.49 mg/dL Estimated GFR () 57.1 Est GFR (CKD-EPI)(Non-Afr Bhutanese) 47.2 BUN/Creatinine Ratio 12.0 Glucose Level 115 mg/dL Calcium Level 8.8 mg/dL Total Bilirubin 0.8 mg/dL Aspartate Amino Transf (AST/SGOT) 31 U/L Alanine Aminotransferase (ALT/SGPT) 25 U/L Alkaline Phosphatase 65 U/L Ammonia 21 umol/L Total Protein 7.3 g/dL Albumin 3.3 g/dL Globulin 4.0 Albumin/Globulin Ratio 0.825 Creatine Kinase MB 2.2 ng/mL Troponin I High Sensitivity 119 ng/L Activated Partial Thromboplast Time 21.9 SEC Current Medications Medications (Trade) Dose Ordered Sig/Kevin Route PRN Reason Start Time Stop Time Status Last Admin Dose Admin Haloperidol Lactate (Haldol) 5 mg STK-MED ONCE .ROUTE 05/01/21 22:38 05/01/21 22:39 DC Lorazepam (Ativan) 2 mg STK-MED ONCE .ROUTE 05/01/21 22:41 05/01/21 22:41 DC Lorazepam (Ativan) 1 mg STAT STAT IV 05/01/21 22:49 05/01/21 22:52 DC 05/01/21 22:50 Haloperidol Lactate (Haldol) 5 mg STAT STAT IM 05/01/21 22:49 05/01/21 22:52 DC 05/01/21 22:49 Acetaminophen (Tylenol) 650 mg Q6H PRN PO PAIN 1 - 3 05/01/21 23:30 05/31/21 23:29 Hydralazine HCl (Apresoline) 20 mg Q4HR PRN IV HYPERTENSION 05/01/21 23:30 05/31/21 23:29 05/02/21 10:06 Ondansetron HCl (Zofran) 4 mg Q4H PRN IV NAUSEA / VOMITING 05/01/21 23:30 05/31/21 23:29 05/02/21 11:16 Lorazepam (Ativan) 1 mg Q2HR PRN IM AGITATION 05/01/21 23:30 05/02/21 04:19 DC 05/02/21 00:35 Losartan Potassium (Cozaar) 25 mg DAILY PO 05/02/21 09:00 06/01/21 08:59 Losartan Potassium (Cozaar) 25 mg STAT STAT PO 05/01/21 23:23 05/01/21 23:59 DC Lorazepam (Ativan) 1 mg Q2HR PRN IV AGITATION 05/02/21 04:30 06/01/21 04:29 05/03/21 07:30 Haloperidol Lactate (Haldol) 5 mg STAT PRN IM ANXIETY 05/02/21 11:30 06/01/21 11:29 05/02/21 11:28 Diazepam (Valium) 10 mg OT ONCE IV 05/02/21 16:30 05/02/21 20:29 DC Diazepam (Valium) 10 mg OT ONCE PO 05/02/21 17:30 05/02/21 20:29 DC 05/02/21 17:17 Diazepam (Valium) 5 mg Q4 PRN PO AGITATION 05/02/21 19:00 05/03/21 10:56 DC 05/03/21 08:53 Diazepam (Valium) 10 mg Q4 PRN PO AGITATION 05/03/21 11:00 06/02/21 10:59 Heparin Sodium/ Dextrose 500 ml @ 0 mls/hr TITRATE IV 05/03/21 13:30 06/02/21 13:29 05/03/21 14:49 Heparin Sodium (Porcine) (Heparin) 5,000 unit OT IV 05/03/21 13:30 06/02/21 13:29 05/03/21 14:45 Aspirin (Aspirin Ec) DAILY PO 05/04/21 09:00 06/03/21 08:59 Acetaminophen (Tylenol) 1,000 mg Q4H PRN PO PAIN 4 - 6 05/03/21 15:00 06/02/21 14:59 Morphine Sulfate (Morphine Sulfate) 2 mg Q4H PRN IV PAIN 7 - 10 05/03/21 15:30 06/02/21 15:29 Olanzapine (Zyprexa Zydis) 5 mg HS SL 05/03/21 21:00 06/02/21 20:59 Assessment/Plan Assessment/Plan Assessment/Plan Encephalopathy? Acute, etiology not clear- drug screen was negative other than benzos (given), ammonia level not significantly elevated, no significant electrolyte imbalance, unknown baseline at this time.Patient was started on Zyprexa, appreciate psychiatry/behavioral health specialist inputr. Chest pain - elevated trop, no ST elevation on EKG. Cardiology consulted and started pt on heparin drip. Medical management as for now, appreciate cardiology input D/c planning - difficult situation as pt not from [place], we haven't been able to find a contact to understand the baseline or further history of the pt. He appears to not be any harm to himself or others. No obvious causes for AMS. ?EtOH abuse? May consider librium? Will keep benzo's prn for severe agitation or possible seizures if this may be EtOH withdrawal. It is difficult to know. Case management consulted for discharge planning. GARY FANG MD May 04, 2021 12:27
--- NOTE | 2021-05-04 16:08 | PRM.PN ---
Subjective Subjective Date: May 04, 2021 Time: 10:00 Subjective Difficult to communicate with patient due to his garbled speech. Patient only oriented to person. Unable to confirm or deny if he is having chest pain, shortness of breath or palpitations. Review of Systems Constitutional: Other (unable to obtain due to patient's inability to communicate effectively) Other unable to obtain due to patient's inability to communicate effectively Allergies: Coded Allergies: No Known Allergies (Unverified , 05/01/21) Objective Vitals and I/O Vital Sign - Last 24 Hours 05/03/21 05/03/21 05/03/21 05/04/21 19:58 20:00 22:12 06:11 Temp 98.0 98.0 Pulse 80 80 69 Resp 20 20 18 B/P (MAP) 153/83 (106) 122/58 (79) Pulse Ox 97 97 99 O2 Delivery Room Air FiO2 21 05/04/21 05/04/21 05/04/21 05/04/21 07:30 11:17 12:37 13:11 Temp 98.4 Pulse 68 79 Resp 18 22 B/P (MAP) 122/58 Pulse Ox 94 99 O2 Delivery Room Air Room Air O2 Flow Rate 0.00 FiO2 21 Intake and Output 05/04/21 07:00 Intake Total 118 ml Output Total 1000 ml Balance -882 ml General: Alert, No acute distress, Other (Oriented to only person) HEENT: PERRLA, EOMI, Mucous membr. moist/pink Neck: Supple Lungs: Clear to auscultation, Normal air movement Heart: Regular rate, Normal S1, Normal S2 Abdomen: Normal bowel sounds, Soft, No tenderness Extremities: No clubbing, No edema Skin: Other (abrasions present on knees) Neuro: Other (garbled speech) Psych/Mental Status: Other (unable to follow commands, uncooperative, agitated, at times yelling ) All Results(Lab/Rad) Laboratory Tests Test 05/03/21 04:47 05/03/21 11:01 05/03/21 13:50 White Blood Count 4.6 10^3/uL Red Blood Count 3.88 10^6/uL Hemoglobin 12.1 g/dL Hematocrit 38.6 % Mean Corpuscular Volume 99.5 fL Mean Corpuscular Hemoglobin 31.2 pg Mean Corpuscular Hemoglobin Concent 31.3 g/dL Red Cell Distribution Width 12.6 % Platelet Count 196 10^3/uL Mean Platelet Volume 10.5 fL Neutrophils (%) (Auto) 61.6 % Lymphocytes (%) (Auto) 23.9 % Monocytes (%) (Auto) 12.1 % Neutrophils # (Auto) 2.8 10^3/uL Lymphocytes # (Auto) 1.10 10^3/uL1 Monocytes # (Auto) 0.6 10^3/uL Absolute Immature Granulocyte (auto 0.01 10^3 u/L Absolute Eosinophils (auto) 0.1 10^3/uL Immature Granulocytes % 0.20 % Eosinophils % 2.0 % Basophils % 0.4 % Basophils # 0.0 10^3/uL Sodium Level 138 mmol/L Potassium Level 4.3 mmol/L Chloride Level 104.0 mmol/L Carbon Dioxide Level 25.8 mmol/L Anion Gap 12.5 Blood Urea Nitrogen 18 mg/dL Creatinine 1.49 mg/dL Estimated GFR () 57.1 Est GFR (CKD-EPI)(Non-Afr Monegasque) 47.2 BUN/Creatinine Ratio 12.0 Glucose Level 115 mg/dL Calcium Level 8.8 mg/dL Total Bilirubin 0.8 mg/dL Aspartate Amino Transf (AST/SGOT) 31 U/L Alanine Aminotransferase (ALT/SGPT) 25 U/L Alkaline Phosphatase 65 U/L Ammonia 21 umol/L Total Protein 7.3 g/dL Albumin 3.3 g/dL Globulin 4.0 Albumin/Globulin Ratio 0.825 Creatine Kinase MB 2.2 ng/mL Troponin I High Sensitivity 119 ng/L Activated Partial Thromboplast Time 21.9 SEC Current Medications Medications (Trade) Dose Ordered Sig/Kevin Route PRN Reason Start Time Stop Time Status Last Admin Dose Admin Haloperidol Lactate (Haldol) 5 mg STK-MED ONCE .ROUTE 05/01/21 22:38 05/01/21 22:39 DC Lorazepam (Ativan) 2 mg STK-MED ONCE .ROUTE 05/01/21 22:41 05/01/21 22:41 DC Lorazepam (Ativan) 1 mg STAT STAT IV 05/01/21 22:49 05/01/21 22:52 DC 05/01/21 22:50 Haloperidol Lactate (Haldol) 5 mg STAT STAT IM 05/01/21 22:49 05/01/21 22:52 DC 05/01/21 22:49 Acetaminophen (Tylenol) 650 mg Q6H PRN PO PAIN 1 - 3 05/01/21 23:30 05/31/21 23:29 Hydralazine HCl (Apresoline) 20 mg Q4HR PRN IV HYPERTENSION 05/01/21 23:30 05/31/21 23:29 05/02/21 10:06 Ondansetron HCl (Zofran) 4 mg Q4H PRN IV NAUSEA / VOMITING 05/01/21 23:30 05/31/21 23:29 05/02/21 11:16 Lorazepam (Ativan) 1 mg Q2HR PRN IM AGITATION 05/01/21 23:30 05/02/21 04:19 DC 05/02/21 00:35 Losartan Potassium (Cozaar) 25 mg DAILY PO 05/02/21 09:00 06/01/21 08:59 Losartan Potassium (Cozaar) 25 mg STAT STAT PO 05/01/21 23:23 05/01/21 23:59 DC Lorazepam (Ativan) 1 mg Q2HR PRN IV AGITATION 05/02/21 04:30 06/01/21 04:29 05/03/21 07:30 Haloperidol Lactate (Haldol) 5 mg STAT PRN IM ANXIETY 05/02/21 11:30 06/01/21 11:29 05/02/21 11:28 Diazepam (Valium) 10 mg OT ONCE IV 05/02/21 16:30 05/02/21 20:29 DC Diazepam (Valium) 10 mg OT ONCE PO 05/02/21 17:30 05/02/21 20:29 DC 05/02/21 17:17 Diazepam (Valium) 5 mg Q4 PRN PO AGITATION 05/02/21 19:00 05/03/21 10:56 DC 05/03/21 08:53 Diazepam (Valium) 10 mg Q4 PRN PO AGITATION 05/03/21 11:00 06/02/21 10:59 Heparin Sodium/ Dextrose 500 ml @ 0 mls/hr TITRATE IV 05/03/21 13:30 06/02/21 13:29 05/03/21 14:49 Heparin Sodium (Porcine) (Heparin) 5,000 unit OT IV 05/03/21 13:30 06/02/21 13:29 05/03/21 14:45 Aspirin (Aspirin Ec) DAILY PO 05/04/21 09:00 06/03/21 08:59 Acetaminophen (Tylenol) 1,000 mg Q4H PRN PO PAIN 4 - 6 05/03/21 15:00 06/02/21 14:59 Morphine Sulfate (Morphine Sulfate) 2 mg Q4H PRN IV PAIN 7 - 10 05/03/21 15:30 06/02/21 15:29 Olanzapine (Zyprexa Zydis) 5 mg HS SL 05/03/21 21:00 06/02/21 20:59 Assessment/Plan Assessment/Plan Assessment/Plan Dr. Villalta: 1. Altered mental status. 2. Presumed metabolic encephalopathy. 3. Presumed alcohol abuse. 4. Elevated high-sensitive troponins likely representing a Type 2 Spill Discontinue heparin gtt in AM Echocardiogram has been ordered. May not be able to obtain due to pt's agitation. Troponin is trending down. No need for invasive cardiac ischemic workup at this time. Vital signs are stable. Conservative management from a cardiac standpoint is recommended. Will sign off. MATTI AMANDA APRN, NP May 04, 2021 16:08 CAYDEN IVLLALTA DO May 04, 2021 20:19
[2021-05-04 19:00] VITALS: BP 153/90
[2021-05-04 19:20] VITALS: BP 153/90
[2021-05-04] MEDS: ZYPREXA ZYDIS SL SCH (20:25)
[2021-05-04] MEDS: TYLENOL PO PRN (20:26)
--- NOTE | 2021-05-04 21:08 | NUR ---
APTT 69.0 within therapeutic range. No changes to infusion rate at this time.Witnessed by Michael Higuera and this nurse.
[2021-05-05] VITALS (11 sets, daily range): BP systolic 117–153; BP diastolic 51–90
[2021-05-05] MEDS: VALIUM PO PRN ×5 (01:24→20:22)
--- NOTE | 2021-05-05 01:53 | NUR ---
PT APTT WAS 87.1 HEPARIN ADJUSTED TO 28.75MLS/HR/1150 UNITS PER HEPARIN PROTOCOL. WITNESSED AT BEDSIDE BY MY SELF AND EJ GONZALES.
[2021-05-05 06:20] LABS: CALCIUM 8.9 mg/dL (8.4-10.5); CARBON DIOXIDE 28.6 mmol/L (20.0-32)
--- NOTE | 2021-05-05 06:28 | NUR ---
Ptt 74.1. No change to heparin drip per protocal
[2021-05-05 06:41] LABS: BASOPHIL % 0.7 % (0.0-0.2); EOSINOPHIL # 0.1 10^3/uL (0.0-0.2); MONOCYTES # 0.3 10^3/uL (0.3-0.8); MONOCYTES % 10.9 % (5.0-12.0); NEUTROPHIL # 1.6 10^3/uL (1.8-7.7); NEUTROPHILS % 51.1 % (41.0-85.0); RED CELL DISTRIBUTION WIDTH 12.3 % (11.5-14.5)
[2021-05-05] MEDS: ATIVAN IV PRN ×7 (06:48→19:29)
[2021-05-05] MEDS ORDERED: NS 1000ML 1,000 ML ONE (08:48)
[2021-05-05] MEDS: COZAAR PO SCH (09:55)
[2021-05-05] MEDS: ASPIRIN EC PO SCH (09:55)
--- NOTE | 2021-05-05 09:56 | NUR ---
DR. VILLALTA NOTIFIED OF THERAPEUTIC APTT. ORDERS RECEIVED TO D/C HEPARIN GTT. DISCONTINUED AT THIS TIME. WILL CONTINUE WITH PLAN OF CARE.
--- NOTE | 2021-05-05 10:34 | NUR ---
FOLLOW UP THIS RN CHECKED WITH CEO & BOARD DIRECTOR ON MED/SURG. DECLINES PSYCH FOLLOW UP AT THIS TIME.
--- NOTE | 2021-05-05 12:42 | PRM.PN ---
Subjective Subjective Date: May 05, 2021 Time: 09:00 Subjective Patient remains restless. I went I spoke with the patient with his Habematole[place] language.Seems to be more calm when I try to explain to himThat we are trying to help him. Apparently patient has family living in [facility], he told me the name of his oldest son but he is not able to provide us with any more information.Case management/social service manager has been on the case trying to get more information Regarding his past medical history, and placement. Patient History: Unknown family medical history Review of Systems Constitutional: Other (I was able to communicate with the patient with his [place] language, gets still a speech is not clear) Allergies: Coded Allergies: No Known Allergies (Unverified , 05/01/21) Objective Vitals and I/O Vital Sign - Last 24 Hours 05/04/21 05/04/21 05/04/21 05/04/21 13:11 16:06 17:05 19:00 Temp 98.7 Pulse 82 78 78 Resp 20 18 20 Pulse Ox 95 98 O2 Delivery Room Air 05/04/21 05/04/21 05/05/21 05/05/21 19:20 19:44 01:34 01:40 Temp 98.6 98.6 Pulse 80 68 78 Resp 20 20 20 B/P (MAP) 153/90 (111) 137/51 (79) Pulse Ox 98 98 O2 Delivery Room Air Room Air Room Air 05/05/21 05/05/21 05/05/21 05/05/21 06:03 06:07 09:55 10:23 Temp 98.3 Pulse 80 80 Resp 20 20 B/P (MAP) 120/78 (92) 120/78 Pulse Ox 100 O2 Delivery Room Air Room Air Intake and Output 05/05/21 07:00 Intake Total 1223 ml Output Total 2000 ml Balance -777 ml General: Alert, No acute distress, Other (Oriented to only person) HEENT: PERRLA, EOMI, Mucous membr. moist/pink Neck: Supple Lungs: Clear to auscultation, Normal air movement Heart: Regular rate, Normal S1, Normal S2 Abdomen: Normal bowel sounds, Soft, No tenderness Extremities: No clubbing, No edema Skin: Other (abrasions present on knees) Neuro: Other (garbled speech) Psych/Mental Status: Other (unable to follow commands, uncooperative, agitated, at times yelling ) All Results(Lab/Rad) Laboratory Tests Test 05/03/21 04:47 05/03/21 11:01 05/03/21 13:50 White Blood Count 4.6 10^3/uL Red Blood Count 3.88 10^6/uL Hemoglobin 12.1 g/dL Hematocrit 38.6 % Mean Corpuscular Volume 99.5 fL Mean Corpuscular Hemoglobin 31.2 pg Mean Corpuscular Hemoglobin Concent 31.3 g/dL Red Cell Distribution Width 12.6 % Platelet Count 196 10^3/uL Mean Platelet Volume 10.5 fL Neutrophils (%) (Auto) 61.6 % Lymphocytes (%) (Auto) 23.9 % Monocytes (%) (Auto) 12.1 % Neutrophils # (Auto) 2.8 10^3/uL Lymphocytes # (Auto) 1.10 10^3/uL1 Monocytes # (Auto) 0.6 10^3/uL Absolute Immature Granulocyte (auto 0.01 10^3 u/L Absolute Eosinophils (auto) 0.1 10^3/uL Immature Granulocytes % 0.20 % Eosinophils % 2.0 % Basophils % 0.4 % Basophils # 0.0 10^3/uL Sodium Level 138 mmol/L Potassium Level 4.3 mmol/L Chloride Level 104.0 mmol/L Carbon Dioxide Level 25.8 mmol/L Anion Gap 12.5 Blood Urea Nitrogen 18 mg/dL Creatinine 1.49 mg/dL Estimated GFR () 57.1 Est GFR (CKD-EPI)(Non-Afr Stateless) 47.2 BUN/Creatinine Ratio 12.0 Glucose Level 115 mg/dL Calcium Level 8.8 mg/dL Total Bilirubin 0.8 mg/dL Aspartate Amino Transf (AST/SGOT) 31 U/L Alanine Aminotransferase (ALT/SGPT) 25 U/L Alkaline Phosphatase 65 U/L Ammonia 21 umol/L Total Protein 7.3 g/dL Albumin 3.3 g/dL Globulin 4.0 Albumin/Globulin Ratio 0.825 Creatine Kinase MB 2.2 ng/mL Troponin I High Sensitivity 119 ng/L Activated Partial Thromboplast Time 21.9 SEC Current Medications Medications (Trade) Dose Ordered Sig/Kevin Route PRN Reason Start Time Stop Time Status Last Admin Dose Admin Haloperidol Lactate (Haldol) 5 mg STK-MED ONCE .ROUTE 05/01/21 22:38 05/01/21 22:39 DC Lorazepam (Ativan) 2 mg STK-MED ONCE .ROUTE 05/01/21 22:41 05/01/21 22:41 DC Lorazepam (Ativan) 1 mg STAT STAT IV 05/01/21 22:49 05/01/21 22:52 DC 05/01/21 22:50 Haloperidol Lactate (Haldol) 5 mg STAT STAT IM 05/01/21 22:49 05/01/21 22:52 DC 05/01/21 22:49 Acetaminophen (Tylenol) 650 mg Q6H PRN PO PAIN 1 - 3 05/01/21 23:30 05/31/21 23:29 Hydralazine HCl (Apresoline) 20 mg Q4HR PRN IV HYPERTENSION 05/01/21 23:30 05/31/21 23:29 05/02/21 10:06 Ondansetron HCl (Zofran) 4 mg Q4H PRN IV NAUSEA / VOMITING 05/01/21 23:30 05/31/21 23:29 05/02/21 11:16 Lorazepam (Ativan) 1 mg Q2HR PRN IM AGITATION 05/01/21 23:30 05/02/21 04:19 DC 05/02/21 00:35 Losartan Potassium (Cozaar) 25 mg DAILY PO 05/02/21 09:00 06/01/21 08:59 Losartan Potassium (Cozaar) 25 mg STAT STAT PO 05/01/21 23:23 05/01/21 23:59 DC Lorazepam (Ativan) 1 mg Q2HR PRN IV AGITATION 05/02/21 04:30 06/01/21 04:29 05/03/21 07:30 Haloperidol Lactate (Haldol) 5 mg STAT PRN IM ANXIETY 05/02/21 11:30 06/01/21 11:29 05/02/21 11:28 Diazepam (Valium) 10 mg OT ONCE IV 05/02/21 16:30 05/02/21 20:29 DC Diazepam (Valium) 10 mg OT ONCE PO 05/02/21 17:30 05/02/21 20:29 DC 05/02/21 17:17 Diazepam (Valium) 5 mg Q4 PRN PO AGITATION 05/02/21 19:00 05/03/21 10:56 DC 05/03/21 08:53 Diazepam (Valium) 10 mg Q4 PRN PO AGITATION 05/03/21 11:00 06/02/21 10:59 Heparin Sodium/ Dextrose 500 ml @ 0 mls/hr TITRATE IV 05/03/21 13:30 06/02/21 13:29 05/03/21 14:49 Heparin Sodium (Porcine) (Heparin) 5,000 unit OT IV 05/03/21 13:30 06/02/21 13:29 05/03/21 14:45 Aspirin (Aspirin Ec) DAILY PO 05/04/21 09:00 06/03/21 08:59 Acetaminophen (Tylenol) 1,000 mg Q4H PRN PO PAIN 4 - 6 05/03/21 15:00 06/02/21 14:59 Morphine Sulfate (Morphine Sulfate) 2 mg Q4H PRN IV PAIN 7 - 10 05/03/21 15:30 06/02/21 15:29 Olanzapine (Zyprexa Zydis) 5 mg HS SL 05/03/21 21:00 06/02/21 20:59 Assessment/Plan Assessment/Plan Assessment/Plan Acute encephalopathy, etiology still unclear Elevated troponin, trending down as per cardiology conservative management no plan for invasive procedures IV heparin discontinued as per cardiology Patient remains restless. I went I spoke with the patient with his Habemat[place] language.Seems to be more calm when I try to explain to himThat we are trying to help him. Apparently patient has family living in [facility], he told me the name of his oldest son , Kalina but he is not able to provide us with any more information.Case management/social service manager has been on the case trying to get more information Regarding his past medical history, and placement. GARY FANG MD May 05, 2021 12:42
[2021-05-05] MEDS: TYLENOL PO PRN (20:21)
[2021-05-05] MEDS: ZYPREXA ZYDIS SL SCH (20:22)
[2021-05-06 02:14] VITALS: BP 139/88
[2021-05-06] MEDS: VALIUM PO PRN ×2 (02:15→09:04)
[2021-05-06 02:20] VITALS: BP 139/88
[2021-05-06] MEDS: ATIVAN IV PRN ×2 (02:59→05:35)
--- NOTE | 2021-05-06 04:07 | NUR ---
Pt has been restless this shift. Pt has been screaming,yelling, attempting to get out of bed and has been thrashing around in the bed. Pt has been combative kicking and hitting.Pt has been given Ativan and Valium as ordered.
[2021-05-06] MEDS ORDERED: ATIVAN ONE (05:21)
[2021-05-06 06:14] LABS: BASOPHIL % 0.1 % (0.0-0.2); EOSINOPHIL # 0.1 10^3/uL (0.0-0.2); EOSINOPHIL % 0.8 % (0.0-5.0); LYMPHOCYTES # 0.82 10^3/uL1 (1.0-4.8); LYMPHOCYTES % 7.8 % (24.0-44.0); MEAN CORP HGB 30.5 pg (26-34); MONOCYTES # 0.8 10^3/uL (0.3-0.8); MONOCYTES % 7.6 % (5.0-12.0); NEUTROPHIL # 8.8 10^3/uL (1.8-7.7); NEUTROPHILS % 83.6 % (41.0-85.0); PLATELET COUNT 185 10^3/uL (150-400); RED CELL DISTRIBUTION WIDTH 12.2 % (11.5-14.5)
[2021-05-06 06:28] LABS: CALCIUM 9.5 mg/dL (8.4-10.5); CARBON DIOXIDE 26.2 mmol/L (20.0-32)
[2021-05-06 08:54] VITALS: BP 137/95
[2021-05-06] MEDS: ASPIRIN EC PO SCH (09:00)
[2021-05-06] MEDS: COZAAR PO SCH (09:00)
[2021-05-06] MEDS ORDERED: LOSA25TA12 PO (12:17)
[2021-05-06] MEDS ORDERED: ASPI-929 PO (12:17)
--- NOTE | 2021-05-06 12:27 | PRM.DC ---
Discharge Summary Date of Discharge: May 06, 2021 Time of Request to Discharge: 13:00 Hospital Course 66 year old male who was brought to the ED from [place] via EMS. EMS reported that the pt was talking to himself, taking his clothes off and yelling at other people in [place]. He was agitated upon their arrival and en route to our ED. He was given a benzodiazepine en route and also intubated to protect airway. He was then extubated in the ED but remained altered. His ammonia level was 40 in the ED. UDS was positive for benzos. CT head was negative in the ED. CXR was negative in ED. He received haldol 5mg IM x 1 and ativan 2mg IM x 1 in the ED. Patient high-sensitivity troponin was elevated, initially patient was started on IV heparin and remodeler was consulted. Field Producer felt that the patient This is type II, no need for further intervention, troponin started trending down. Patient denies any chest pain. Patient initially was seen by psych and he was cleared from a psych issues. Today patient is more calm. Able to answer questions in his steb[place] language. Apparently patient is from [facility] and his left family living in [facility]. Case management worked on the case and was Able to find home address for the patient. Hospital will provide a safe drive to his home [facility]. Currently patient medical condition is stable. As long as the patient will be private home or snf safely patient can be discharged from my side. Prescription given for blood pressure medication and aspirin. Patient was advised to establish care with a primary care provider. Patient will be discharged home. Condition on discharge stable. Activity as tolerated. Diet heart healthy.Case discussed with case management. Patient History: Unknown family medical history Exam/Vitals Blood pressure 130/85, heart rate 80, respiratory rate 14, temperature 98. General: No acute distress HEENT: EOMI, Mucous membr. moist/pink Neck: Supple, No JVD Lungs: Clear to auscultation, Normal air movement Heart: Regular rate, Normal S1, Normal S2 Abdomen: Normal bowel sounds, Soft, No tenderness Extremities: No clubbing, No cyanosis Neuro: Normal tone, Sensation intact Psych/Mental Status: Other (Patient is more calm today.) Scheduled Aspirin (Aspirin Ec), 81 MG PO DAILY Losartan Potassium (Losartan Potassium), 25 MG PO DAILY Sepsis Evaluation @ Discharge Vital Sign - Last 24 Hours 05/03/21 05/03/21 05/03/21 05/03/21 08:23 09:00 10:10 10:25 Temp 98.0 Pulse 83 96 Resp 19 22 B/P (MAP) 125/68 (87) 125/68 Pulse Ox 99 98 O2 Delivery Room Air Room Air Intake and Output 05/03/21 07:00 Intake Total 690 ml Output Total 1080 ml Balance -390 ml Laboratory Tests Test 05/01/21 18:26 05/01/21 18:31 05/01/21 18:55 05/01/21 19:40 Blood Gas Sample Site LEFT BRACHIAL ARTRY Blood Gas pH 7.340 Blood Gas PCO2 45.1 mmHg Blood Gas PO2 70.0 mmHg Blood Gas HCO3 23.8 mmol/L Blood Gas Base Excess -2.1 mmol/L Bossman Test N/A Arterial Blood Oxygen Saturation 90.8 % Deoxyhemoglobin 9.1 % Carboxyhemoglobin 0.3 % Methemoglobin 0.4 % Total Hemoglobin 11.4 % Total Oxygen Concentration 14.5 % Blood Gas Temperature 37.0 Oxygen Delivery Method (LAB) VENT Blood Gas Vent Mode AC Blood Gas Vent Rate 18 FiO2 35 % Blood Gas Tidal Volume 380 ML Blood Gas PEEP 5 CMH2O Total Carbon Dioxide 25.2 mmol/L Urine Collection Type CATH Urine Color YELLOW Urine Appearance CLOUDY Urine Bilirubin NEGATIVE Urine Ketones NEGATIVE Urine Specific [place] 1.025 Urine pH 5.5 Urine Protein 2+ Urine Urobilinogen 0.2 E.U./dL Urine Nitrate NEGATIVE Urine Leukocyte Esterase TRACE Urine Glucose (Auto)(UA) NEGATIVE Urine Blood 3+ Urine RBC TooNumerousToCount RBC/HPF Urine WBC 2-5 WBC/HPF Urine Squamous Epithelial Cells FEW Urine Bacteria FEW Urine Opiates Screen NEGATIVE Urine Methadone Screen NEGATIVE Urine Barbiturates Screen NEGATIVE Urine Phencyclidine Screen NEGATIVE Ur Amphetamine/Methamphetamine NEGATIVE Urine MDMA Screen (Ecstasy) NEGATIVE Urine Benzodiazepines Screen PRESUMPTIVE POSITIVE Urine Cocaine Metabolite Screen NEGATIVE Ur Tetrahydrocannabinol (THC) Scrn NEGATIVE SARS-CoV-2 Antigen (Rapid) NEGATIVE White Blood Count 6.1 10^3/uL Red Blood Count 4.04 10^6/uL Hemoglobin 12.4 g/dL Hematocrit 39.8 % Mean Corpuscular Volume 98.5 fL Mean Corpuscular Hemoglobin 30.7 pg Mean Corpuscular Hemoglobin Concent 31.2 g/dL Red Cell Distribution Width 12.8 % Platelet Count 189 10^3/uL Mean Platelet Volume 9.7 fL Neutrophils (%) (Auto) 68.6 % Lymphocytes (%) (Auto) 19.4 % Monocytes (%) (Auto) 10.2 % Neutrophils # (Auto) 4.2 10^3/uL Lymphocytes # (Auto) 1.18 10^3/uL1 Monocytes # (Auto) 0.6 10^3/uL Absolute Immature Granulocyte (auto 0.03 10^3 u/L Absolute Eosinophils (auto) 0.1 10^3/uL Immature Granulocytes % 0.50 % Eosinophils % 1.0 % Basophils % 0.3 % Basophils # 0.0 10^3/uL Prothrombin Time 11.4 SEC Prothrombin Time INR (Non-Therap) 1.1 Activated Partial Thromboplast Time 20.7 SEC Sodium Level 134 mmol/L Potassium Level 4.2 mmol/L Chloride Level 100.0 mmol/L Carbon Dioxide Level 23.1 mmol/L Anion Gap 15.1 Blood Urea Nitrogen 12 mg/dL Creatinine 1.09 mg/dL Estimated GFR () 81.9 Est GFR (CKD-EPI)(Non-Afr Lao) 67.7 BUN/Creatinine Ratio 11.0 Glucose Level 156 mg/dL Calcium Level 8.8 mg/dL Total Bilirubin 0.7 mg/dL Aspartate Amino Transf (AST/SGOT) 34 U/L Alanine Aminotransferase (ALT/SGPT) 29 U/L Alkaline Phosphatase 75 U/L Ammonia 40 umol/L Total Creatine Kinase 103 U/L Creatine Kinase MB 0.7 ng/mL Troponin I < 0.02 ng/mL Total Protein 7.9 g/dL Albumin 3.7 g/dL Globulin 4.2 Albumin/Globulin Ratio 0.880 Test 05/02/21 06:30 05/03/21 04:47 05/03/21 11:01 05/03/21 13:50 White Blood Count 6.4 10^3/uL 4.6 10^3/uL Red Blood Count 3.53 10^6/uL 3.88 10^6/uL Hemoglobin 11.0 g/dL 12.1 g/dL Hematocrit 33.9 % 38.6 % Mean Corpuscular Volume 96.0 fL 99.5 fL Mean Corpuscular Hemoglobin 31.2 pg 31.2 pg Mean Corpuscular Hemoglobin Concent 32.4 g/dL 31.3 g/dL Red Cell Distribution Width 12.7 % 12.6 % Platelet Count 141 10^3/uL 196 10^3/uL Mean Platelet Volume 10.0 fL 10.5 fL Neutrophils (%) (Auto) 74.7 % 61.6 % Lymphocytes (%) (Auto) 13.5 % 23.9 % Monocytes (%) (Auto) 10.2 % 12.1 % Neutrophils # (Auto) 4.8 10^3/uL 2.8 10^3/uL Lymphocytes # (Auto) 0.87 10^3/uL1 1.10 10^3/uL1 Monocytes # (Auto) 0.7 10^3/uL 0.6 10^3/uL Absolute Immature Granulocyte (auto 0.02 10^3 u/L 0.01 10^3 u/L Absolute Eosinophils (auto) 0.1 10^3/uL 0.1 10^3/uL Immature Granulocytes % 0.30 % 0.20 % Eosinophils % 1.1 % 2.0 % Basophils % 0.2 % 0.4 % Basophils # 0.0 10^3/uL 0.0 10^3/uL Sodium Level 134 mmol/L 138 mmol/L Potassium Level 4.1 mmol/L 4.3 mmol/L Chloride Level 103.0 mmol/L 104.0 mmol/L Carbon Dioxide Level 23.3 mmol/L 25.8 mmol/L Anion Gap 11.8 12.5 Blood Urea Nitrogen 10 mg/dL 18 mg/dL Creatinine 0.90 mg/dL 1.49 mg/dL Estimated GFR () 102.2 57.1 Est GFR (CKD-EPI)(Non-Afr Lao) 84.4 47.2 BUN/Creatinine Ratio 11.0 12.0 Glucose Level 94 mg/dL 115 mg/dL Calcium Level 8.7 mg/dL 8.8 mg/dL Total Bilirubin 0.9 mg/dL 0.8 mg/dL Aspartate Amino Transf (AST/SGOT) 30 U/L 31 U/L Alanine Aminotransferase (ALT/SGPT) 24 U/L 25 U/L Alkaline Phosphatase 61 U/L 65 U/L Ammonia 13 umol/L 21 umol/L Total Protein 6.8 g/dL 7.3 g/dL Albumin 3.0 g/dL 3.3 g/dL Globulin 3.8 4.0 Albumin/Globulin Ratio 0.789 0.825 Creatine Kinase MB 2.2 ng/mL Troponin I High Sensitivity 119 ng/L Activated Partial Thromboplast Time 21.9 SEC Current Medications Medications (Trade) Dose Ordered Sig/Kevin PRN Reason Start Time Stop Time Status Last Admin Acetaminophen (Tylenol) 650 mg Q6H PRN PAIN 1 - 3 05/01/21 23:30 05/31/21 23:29 Acetaminophen (Tylenol) 1,000 mg Q4H PRN PAIN 4 - 6 05/03/21 15:00 06/02/21 14:59 Aspirin (Aspirin Ec) DAILY 05/04/21 09:00 06/03/21 08:59 Diazepam (Valium) 10 mg Q4 PRN AGITATION 05/03/21 11:00 06/02/21 10:59 Haloperidol Lactate (Haldol) 5 mg STAT PRN ANXIETY 05/02/21 11:30 06/01/21 11:29 05/02/21 11:28 Heparin Sodium (Porcine) (Heparin) 5,000 unit OT 05/03/21 13:30 06/02/21 13:29 05/03/21 14:45 Heparin Sodium/ Dextrose 500 ml @ 0 mls/hr TITRATE 05/03/21 13:30 06/02/21 13:29 05/03/21 14:49 Hydralazine HCl (Apresoline) 20 mg Q4HR PRN HYPERTENSION 05/01/21 23:30 05/31/21 23:29 05/02/21 10:06 Lorazepam (Ativan) 1 mg Q2HR PRN AGITATION 05/02/21 04:30 06/01/21 04:29 05/03/21 07:30 Losartan Potassium (Cozaar) 25 mg DAILY 05/02/21 09:00 06/01/21 08:59 Morphine Sulfate (Morphine Sulfate) 2 mg Q4H PRN PAIN 7 - 10 05/03/21 15:30 06/02/21 15:29 Olanzapine (Zyprexa Zydis) 5 mg HS 05/03/21 21:00 06/02/21 20:59 Ondansetron HCl (Zofran) 4 mg Q4H PRN NAUSEA / VOMITING 05/01/21 23:30 05/31/21 23:29 05/02/21 11:16 Plan Problems: (1) Altered mental status, unspecified Status: Acute ICD Code: R41.82 - Altered mental status, unspecified SNOMED: 490146005 (2) Hypertensive urgency Status: Acute ICD Code: I16.0 - Hypertensive urgency SNOMED: 020320594 (3) Unknown whether patient has any health problems SNOMED: [id number] Discharge Date: May 06, 2021 Discharge Disposition: Stable Plan 66 year old male who was brought to the ED from [place] via EMS. EMS reported that the pt was talking to himself, taking his clothes off and yelling at other people in [place]. He was agitated upon their arrival and en route to our ED. He was given a benzodiazepine en route and also intubated to protect airway. He was then extubated in the ED but remained altered. His ammonia level was 40 in the ED. UDS was positive for benzos. CT head was negative in the ED. CXR was negative in ED. He received haldol 5mg IM x 1 and ativan 2mg IM x 1 in the ED. Patient high-sensitivity troponin was elevated, initially patient was started on IV heparin and remodeler was consulted. Field Producer felt that the patient This is type II, no need for further intervention, troponin started trending down. Patient denies any chest pain. Patient initially was seen by psych and he was cleared from a psych issues. Today patient is more calm. Able to answer questions in his [place] language. Apparently patient is from [facility] and his left family living in [facility]. Case management worked on the case and was Able to find home address for the patient. Hospital will provide a safe drive to his home [facility]. Currently patient medical condition is stable. As long as the patient will be private home or snf safely patient can be discharged from my side. Prescription given for blood pressure medication and aspirin. Patient was advised to establish care with a primary care provider. Patient will be discharged home. Condition on discharge stable. Activity as tolerated. Diet heart healthy.Case discussed with case management. Problem Qualifiers (1) Altered mental status, unspecified: Altered mental status type: unspecified Qualified Codes: R41.82 - Altered mental status, unspecified GARY FANG MD May 06, 2021 12:26
[2021-05-06 15:40] VITALS: BP 137/95
--- NOTE | 2021-05-06 15:40 | NUR ---
DISCHARGE PATIENT PROVIDED WITH DISCHARGE PACKET INCLUDING EDUCATION, NEW PRESCRIPTIONS, AND WHEN TO SEEK MEDICAL ATTENTION. PATIENT IS STABLE WITH NO SIGNS OF DISTRESS NOTED AT THIS TIME. IV DC'D AT THIS TIME, NO REDNESS OR SWELLING NOTED AT SITE. PATIENT TAKEN TO [facility] VIA WHEEL CHAIR ACCOMPANIED BY [employer]ER AND SECURITY. RELINQUISHED CARE OF PATIENT AT THIS TIME
== END 2021-05-06 15:50 | disposition home or self-care (01) | DRG 71 ==
LOC: ER 18:18 → OBSVTOIN 22:49 → MS 22:49 → INTOOBSV 22:49 → UNDOADMOB 22:49
PROVIDERS: ADMIT Family Medicine; ATTEND Student in an Organized Health Care Education/Training Program
PROC: 5A1935Z Respiratory Ventilation, Less than 24 Consecutive Hours (ICD-10-PCS; principal; 2021-05-01)
PROC: 0BH17EZ Insertion of Endotracheal Airway into Trachea, Via Natural or Artificial Opening (ICD-10-PCS; 2021-05-01)
DX: G93.41 Metabolic encephalopathy (principal); I45.2 Bifascicular block; I16.0 Hypertensive urgency; F10.10 Alcohol abuse, uncomplicated; R09.02 Hypoxemia; I25.2 Old myocardial infarction; Z20.822 Contact with and (suspected) exposure to COVID-19
CPT/HCPCS: 36415; 70450; 71045; 80053; 80307; 80346; 81001; 82104; 82140; 82550; 82553; 82803; 84484; 85025; 85610; 85730; 87086; 87426; 92610; 93005; 94002; G0378; J0360; J1644; J2060; J2405; J3360; J7030; J1630